=== PATIENT | female | born 1935 | race Caucasian/White ===

== ENCOUNTER → 2019-07-02 | Outpatient (CLI) | payer MEDICARE | END | disposition home or self-care (01) | LOC: LAB SHORT 13:45 → LAB 13:45 | DX: L08.0 Pyoderma (principal) | CPT/HCPCS: 87070; 87205 ==

== ENCOUNTER → 2020-07-19 | Outpatient (CLI) | payer MEDICARE ==
[~2020-07-19] MED LIST: ACET325 PO; CENTRUM SILVER1 EAC2 PO; FOLI400 PO; Flax Oil1000 MG PO; GABA300 PO; HYDR1TAB94 PO; Lovastatin20 MG PO; MIRALAX17 GM PO; MYRBETRIQ50 MG PO; NITR.4SL SL; OMEP20ER PO; TRAZ50 PO; Vitamin B-121000 MCG PO
== END ==
LOC: LAB 11:20 → LAB SHORT 11:20
DX: R10.9 Unspecified abdominal pain (principal)
CPT/HCPCS: 87077; 87086; 87186

== ENCOUNTER 2020-07-20 23:15 | Inpatient (IN) | payer MEDICARE ==
[~2020-07-20] VITALS: Ht 160 cm; Wt 61.2 kg
[2020-07-21 00:10] LABS: BASOPHILS ABSOLUTE AUTO 0.01 K/mm3 (0.00-0.23); BASOPHILS PERCENT AUTO 0 % (0-2); EOSINOPHILS ABSOLUTE AUTO 0.01 K/mm3 (0.00-0.68); EOSINOPHILS PERCENT AUTO 0 % (0-6); Hematocrit 39.2 % (33.0-51.0); Hemoglobin 12.9 g/dL (11.5-16.0); IMMATURE GRAN ABSOLUTE AUTO 0.13 K/mm3 (0.00-0.10); IMMATURE GRAN PERCENT AUTO 1 % (0-1); LYMPHOCYTES ABSOLUTE AUTO 0.58 K/mm3 (0.84-5.20); LYMPHOCYTES PERCENT AUTO 3 % (21-46); MONOCYTES ABSOLUTE AUTO 1.31 K/mm3 (0.16-1.47); MONOCYTES PERCENT AUTO 8 % (4-13); Mean Corpuscular HGB 31.5 pg (26.0-34.0); Mean Corpuscular HGB Conc 32.9 g/dL (31.5-36.5); Mean Corpuscular Volume 96 fL (80-100); Mean Platelet Volume 8.9 fL (9.1-12.4); NEUTROPHILS PERCENT AUTO 88 % (41-73); Platelet Count 425 K/mm3 (150-400); RDW Coefficient Variation 13.1 % (11.7-14.2); RDW Standard Deviation 46.5 fL (35.1-46.3); White Blood Cell Count 17.24 K/mm3 (4.00-11.30)
[2020-07-21 00:12] LABS: Appearance, Urine Hazy (Clear); Bilirubin, Urine 2+ (Neg); Blood, Urine 3+ (Neg); Color, Urine Amber (P-Yellow); Glucose Qualitative, Urine Neg (Neg); Ketones, Urine 1+ (Neg); Leukocyte Esterase, Urine 2+ (Neg); Nitrite, Urine Neg (Neg); Protein, Urine 2+ (Neg); Source, Urine Catheter; Urobilinogen, Urine 2+ (Normal)
[2020-07-21 00:19] LABS: Amorphous Light (0-Heavy); Bacteria Many /hpf; Red Blood Cells, Urine 0-2 /hpf (0-2); Squamous Epithelial Cells Few /hpf (Few); White Blood Cells, Urine 50-100 /hpf (0-5)
[2020-07-21 05:13] LABS: Alanine Aminotransfer (ALT/SGP 1268 U/L (12-78); Albumin, Blood 3.2 g/dL (3.4-5.0); Albumin/Globulin Ratio 0.7 (0.8-1.8); Alk Phos 481 U/L (50-136); Anion Gap 9 mmol/L (6-16); Aspartate Aminotrans (AST/SGOT 1718 U/L (12-37); Bilirubin, Total 5.2 mg/dL (0.1-1.0); Blood Urea Nitrogen 27 mg/dL (8-24); CO2, Blood 25 mmol/L (21-32); Calcium, Blood 9.5 mg/dL (8.5-10.1); Chloride, Blood 99 mmol/L (98-108); Creatinine, Blood 0.97 mg/dL (0.40-1.00); Globulin, Blood 4.5 g/dL (2.2-4.0); Glomerular Filtration Rate 58 (60-); Glucose, Blood 104 mg/dL (70-99); Potassium, Blood 3.5 mmol/L (3.5-5.5); Sodium, Blood 133 mmol/L (136-145); Total Protein, Blood 7.7 g/dL (6.4-8.2)
[2020-07-21 05:29] LABS: Troponin I <0.015 ng/mL (0.000-0.040)
[2020-07-21] MEDS ORDERED: CENTRUM SILVER1 EAC2 PO (05:59)
[2020-07-21] MEDS ORDERED: Flax Oil1000 MG PO (06:00)
[2020-07-21] MEDS ORDERED: FOLI400 PO (06:00)
[2020-07-21] MEDS ORDERED: Lovastatin20 MG PO (06:01)
[2020-07-21] MEDS ORDERED: TRAZ50 PO (06:03)
[2020-07-21] MEDS ORDERED: MYRBETRIQ50 MG PO (06:03)
[2020-07-21] MEDS ORDERED: Vitamin B-121000 MCG PO (06:04)
[2020-07-21] MEDS ORDERED: GABA300 PO (06:05)
[2020-07-21] MEDS ORDERED: NITR.4SL SL (06:06)
[2020-07-21] MEDS ORDERED: ACET325 PO (06:33)
[2020-07-21] MEDS ORDERED: OMEP20ER PO (06:34)
--- NOTE | 2020-07-21 06:40 | NUR ---
SHIFT SUMMARY PT ADMIT TO RM 226 AT 0315. PT A/O X3-4, SPEECH SLIGHTLY SLURRED, PT FORGETFUL AT TIMES. BED ALARM ON. IV FLUIDS STARTED PER ORDERS. DNR BAND PLACED L WRIST. PT DENIES NEED FOR PAIN OR NAUSEA MEDICATION. ORIENTED TO ROOM. SCD'S PLACED. CALL LIGHT IN REACH. O2 NASAL CANULA IN USE TO MAINTAIN O2 SAT WHILE ASLEEP. PT NEEDS 2X ASSIST TO COMMODE; LEGS ARE WEAK - USES WHEELCHAIR AT BASELINE. PT NPO. MOUTH SWABS PROVIDED. ATTENS IN PLACE FOR OCC. INCONTINENCE. PT CURRENTLY RESTING QUIETLY IN BED.
[2020-07-21 11:27] LABS: Albumin, Blood 2.8 g/dL (3.4-5.0); Albumin/Globulin Ratio 0.7 (0.8-1.8); Bilirubin, Total 5.3 mg/dL (0.1-1.0); Bun/Creatinine Ratio 26.9 (12.0-20.0); Calcium, Blood 9.1 mg/dL (8.5-10.1); Creatinine, Blood 1.04 mg/dL (0.40-1.00); Globulin, Blood 3.9 g/dL (2.2-4.0); Potassium, Blood 3.8 mmol/L (3.5-5.5); Total Protein, Blood 6.7 g/dL (6.4-8.2)
--- NOTE | 2020-07-21 15:23 | NUR ---
SHIFT SUMMARY PT A&OX3, VSS, PLAN IS FOR MRCP AT 1730 TODAY. DENIES PAIN AT REST; REPORTS PAIN W/DEEP BREATHS AND MOVEMT. DENIES N&V. NPO T/O SHIFT. IVF @ 100 MLS/HR. UNASYN SCHEDULED. WILL REPORT TO ONCOMING NOC MARIBEL.
[2020-07-22 04:11] LABS: BASOPHILS ABSOLUTE AUTO 0.03 K/mm3 (0.00-0.23); BASOPHILS PERCENT AUTO 0 % (0-2); EOSINOPHILS PERCENT AUTO 2 % (0-6); Hematocrit 29.4 % (33.0-51.0); Hemoglobin 9.4 g/dL (11.5-16.0); IMMATURE GRAN ABSOLUTE AUTO 0.04 K/mm3 (0.00-0.10); IMMATURE GRAN PERCENT AUTO 1 % (0-1); LYMPHOCYTES ABSOLUTE AUTO 0.98 K/mm3 (0.84-5.20); LYMPHOCYTES PERCENT AUTO 12 % (21-46); MONOCYTES ABSOLUTE AUTO 0.88 K/mm3 (0.16-1.47); MONOCYTES PERCENT AUTO 10 % (4-13); Mean Corpuscular HGB 31.4 pg (26.0-34.0); Mean Corpuscular Volume 98 fL (80-100); Mean Platelet Volume 9.3 fL (9.1-12.4); NEUTROPHILS ABSOLUTE AUTO 6.39 K/mm3 (1.96-9.15); NEUTROPHILS PERCENT AUTO 75 % (41-73); Platelet Count 349 K/mm3 (150-400); RDW Coefficient Variation 13.2 % (11.7-14.2); Red Blood Cell Count 2.99 M/mm3 (3.80-5.20); White Blood Cell Count 8.52 K/mm3 (4.00-11.30)
[2020-07-22 04:39] LABS: Alanine Aminotransfer (ALT/SGP 525 U/L (12-78); Albumin, Blood 2.5 g/dL (3.4-5.0); Albumin/Globulin Ratio 0.7 (0.8-1.8); Alk Phos 284 U/L (50-136); Anion Gap 5 mmol/L (6-16); Aspartate Aminotrans (AST/SGOT 323 U/L (12-37); Bilirubin, Total 2.2 mg/dL (0.1-1.0); Blood Urea Nitrogen 24 mg/dL (8-24); Bun/Creatinine Ratio 27.6 (12.0-20.0); CO2, Blood 26 mmol/L (21-32); Calcium, Blood 8.7 mg/dL (8.5-10.1); Chloride, Blood 109 mmol/L (98-108); Creatinine, Blood 0.87 mg/dL (0.40-1.00); Globulin, Blood 3.6 g/dL (2.2-4.0); Glomerular Filtration Rate >60 (60-); Glucose, Blood 82 mg/dL (70-99); Potassium, Blood 3.8 mmol/L (3.5-5.5); Sodium, Blood 140 mmol/L (136-145); Total Protein, Blood 6.1 g/dL (6.4-8.2)
--- NOTE | 2020-07-22 07:18 | NUR ---
SHIFT SUMMARY: PT DENIES ABD PAIN THROUGHOUT SHIFT. NPO FOR POSSIBLE SURGERY TODAY DEPENDING ON MRI. IVF AND IV ABX INFUSING PER EMAR. PT IS A STAND/PIVOT TO BSC. VOIDING WELL. URINE DARK IN COLOR. RECIEVING ABX FOR UTI. PT UNSTEADY ON FEET REQUIRING 2 ASSIST. PT A&O X4 BUT IS FORGETFUL AT TIMES. BED ALARM ON FOR SAFETY.
--- NOTE | 2020-07-22 07:30 | NUR ---
PT DENIES PAIN AT THIS TIME STATED IT IS MIN WITH ACTIVITY 12/23 PT CAN HAVE CL TODAY NPO AFTER MN PER DR MARIEE
--- NOTE | 2020-07-22 09:01 | NUR ---
left message for juan dale at [facility] [phone] to call back for update on pt's plan
--- NOTE | 2020-07-22 10:06 | NUR ---
PT WANTING TO TAKE A NAP MARKO CL THIS AM
--- NOTE | 2020-07-22 12:52 | NUR ---
PT SITTING UP IN CHAIR EATING LUNCH CL DIET WATCHING TV
--- NOTE | 2020-07-22 14:21 | NUR ---
PT'S SON BROUGHT IN HER CYTOMEL MEDICATION SENT TO PHARMACY
--- NOTE | 2020-07-22 15:15 | NUR ---
pt denies dizziness at this time dec b/p sitting up in chair encoraged pt to lay down
--- NOTE | 2020-07-22 16:03 | NUR ---
pt voided assisted back into bed
--- NOTE | 2020-07-22 18:05 | NUR ---
pt stated she was cold additional blanket given pt eating cl diet still no inc pain with diet will be npo after mn
--- NOTE | 2020-07-22 23:45 | NUR ---
SPOKE WITH SASHA REGARDING PT PVR >500 ML. ALSO DISCUSSED PT C/O MILD DIZZYNESS WHEN UP,WITH DAY RN REPORTING NOTED ORTHOSTATIC HYPOTENSION. NO IV FLUIDS ORDERED WHILE PT NPO AFTER MIDNOC FOR POTENTIAL OR. SASHA BUTT PT HAD BEATRICE ON ADMIT WITH RESOLVING UPON RECEIVING IV FLUIDS. IV FLUIDS AND STRAIGHT CATH WITH Q 6 PVR AND STRAIGHT CATH PRN PVR>300 ML.
--- NOTE | 2020-07-23 04:44 | NUR ---
PT SLEEPING SNORING AT THIS TIME. PT HAS C/O INABILITY TO SLEEP PARTIALLY DUE TO SNORING IN NEXT ROOM.I OFFERED EAR PLUGS BUT PT REFUSED.PT WITH NO C/O NAUSEA TONIGHT. REMAINS NPO PENDING POSSIBLE OR TODAY.
--- NOTE | 2020-07-23 06:40 | NUR ---
SUMMARY PT CONTINUES WITH LARGE VOLUME RESIDUAL AND PT REPORTS HX OF RETAINING AND UTI.MA PLACED.PT RESTING .CONT NPO POSSIBLE PREOP FOR TODAY. NO OTHER CHANGES.
[2020-07-23 09:40] LABS: Alanine Aminotransfer (ALT/SGP 358 U/L (12-78); Albumin, Blood 2.5 g/dL (3.4-5.0); Albumin/Globulin Ratio 0.6 (0.8-1.8); Alk Phos 251 U/L (50-136); Anion Gap 5 mmol/L (6-16); Aspartate Aminotrans (AST/SGOT 107 U/L (12-37); Blood Urea Nitrogen 14 mg/dL (8-24); Bun/Creatinine Ratio 16.7 (12.0-20.0); CO2, Blood 26 mmol/L (21-32); Calcium, Blood 9.3 mg/dL (8.5-10.1); Chloride, Blood 112 mmol/L (98-108); Creatinine, Blood 0.84 mg/dL (0.40-1.00); Globulin, Blood 4.3 g/dL (2.2-4.0); Glomerular Filtration Rate >60 (60-); Glucose, Blood 81 mg/dL (70-99); Sodium, Blood 143 mmol/L (136-145); Total Protein, Blood 6.8 g/dL (6.4-8.2)
--- NOTE | 2020-07-23 18:27 | NUR ---
SHIFT SUMMARY NO ACUTE CHANGES THIS SHIFT, NO C/O ANY KIND, UP TO THE CHAIR FOR DINNER @ AT THIS TIME, CALL LIGHT IN REACH, WILL CONT TO MONITOR UNTIL REPORT GIVEN TO MARYANNE LÓPEZ.
[2020-07-24 04:53] LABS: Hematocrit 30.7 % (33.0-51.0); Hemoglobin 9.9 g/dL (11.5-16.0); Mean Corpuscular HGB 31.3 pg (26.0-34.0); Mean Corpuscular HGB Conc 32.2 g/dL (31.5-36.5); Mean Corpuscular Volume 97 fL (80-100); Mean Platelet Volume 8.9 fL (9.1-12.4); Platelet Count 408 K/mm3 (150-400); RDW Coefficient Variation 12.5 % (11.7-14.2); Red Blood Cell Count 3.16 M/mm3 (3.80-5.20); White Blood Cell Count 4.81 K/mm3 (4.00-11.30)
[2020-07-24 05:13] LABS: Anion Gap 5 mmol/L (6-16); Blood Urea Nitrogen 7 mg/dL (8-24); Bun/Creatinine Ratio 9.5 (12.0-20.0); CO2, Blood 27 mmol/L (21-32); Calcium, Blood 8.6 mg/dL (8.5-10.1); Chloride, Blood 109 mmol/L (98-108); Creatinine, Blood 0.74 mg/dL (0.40-1.00); Glomerular Filtration Rate >60 (60-); Glucose, Blood 92 mg/dL (70-99); Potassium, Blood 3.9 mmol/L (3.5-5.5); Sodium, Blood 141 mmol/L (136-145)
--- NOTE | 2020-07-24 07:10 | NUR ---
SUMMARY RYELER TO SEE PT. PLANS FOR SURGERY THIS PM.
--- NOTE | 2020-07-24 11:55 | NUR ---
pt transferred to daysurgery via stretcher
--- NOTE | 2020-07-24 12:13 | NUR ---
IV DIFFICULT TO FLUSH, LEAKING INTO DRESSING, PT DENIES PAIN. RESTART OF IV
--- NOTE | 2020-07-24 13:05 | NUR ---
07/24/20 1305 Mikhail Kelly PATIENT ARRIVED TO OR W/MA CATH DRAINING YELLOW URINE
--- NOTE | 2020-07-24 16:20 | NUR ---
SHIFT SUMMARY: PT RETURNED TO ROOM VIA STRETCHER 1600 FROM SURGICAL PROCEDURE LAPARASCOPIC CHOLECYSTECTOMY. UPON RETURNING TO ROOM PT DROWSY BUT IS RESPONSIVE, ALERT, ANSWERS APPROPRIATELY. 2L NC WITH SPO2 >92%. PT DENIES PAIN, STATES TO MILD NAUSEA, NO VOMITING. POST OP VS COMMENCED AND STABLE THUS FAR. MA CATHETER PATENT AND DRAINING CLEAR YELLOW URINE. LAP SITES ABDOMEN X 2 C/D/I WITH 2X2 GAUZE UNDERNEATH TEGADERM DRESSING
--- NOTE | 2020-07-24 16:53 | NUR ---
family member visiting pt
--- NOTE | 2020-07-25 05:14 | NUR ---
SHIFT SUMMARY POD#1 LAP ANU. CONFUSED INTERMITTENTLY T/O NIGHT/COOPERATIVE. ABD INCISIONS WITH GAUZE X4 C/D/I. PT REPORTING MILD DISCOMFORT WITH REPOSITIONING, DENIES PAIN MEDICATIONS. NO NAUSEA/EMESIS. IVF PER ORDERS. STRICT I+Os. PT TAKING SIPS WATER T/O NIGHT WITH MA SECURE/PATENT DRAINING CLEAR YELLOW URINE. MEPILEX TO COCCYX APPLIED YESTARDAY PER DAY SHIFT RN, TURN Q2H T/O NIGHT + HEELS FLOATED. PT RESTED WELL T/O NIGHT. ENCOURAGE MOVEMENT + OOB TODAY TOLERATED. NO ACUTE CHANGES THIS NOC SHIFT. PT CURRENTLY RESTING WITH CALL LIGHT IN REACH + PT USES CALL LIGHT FOR ASSISTANCE.
--- NOTE | 2020-07-25 09:30 | NUR ---
DR VELÁZQUEZ HERE RECENTLY TO SEE PT.
--- NOTE | 2020-07-25 10:59 | NUR ---
PT RECENTLY UP TO CHAIR WITH ASSIST, GB, WALKER. FAMILY PRESENT.
--- NOTE | 2020-07-25 11:00 | NUR ---
PT USING I/S AFTER ENCOURAGEMENT.
--- NOTE | 2020-07-25 15:14 | NUR ---
DR DIAZ HERE RECENTLY TO SEE PT. REPORTS PT MAY BE S.L. WHICH WAS COMPLETED. ALSO REPORTS TO D/C CATHETER. FEMALE SAILOR NOTIFIED. DISCUSSED WITH EMBROIDERY DESIGNER.
--- NOTE | 2020-07-25 15:58 | NUR ---
SHIFT SUMMARY PT TOLERATING C.L. DIET, ADVANCING TO F.L. DIET THIS EVENING. PT REPORTS PAIN DOING MUCH BETTER THIS AFTERNOON. PT BEEN UP TO CHAIR TODAY. PT S.L. SHE IS DRINKING WELL. PT TO HAVE MA OUT TODAY PER DR DIAZ, FEMALE CASTING MACHINE SET UP OPERATOR TO ASSIST WITH THIS. PT USING [employer] LIGHT APPR. PT BEEN ASSISTED WITH ADL'S PRN.
--- NOTE | 2020-07-25 16:34 | NUR ---
FEMALE CONVEYOR LOADER REPORTS RECENTLY D/C'D FRANCESCA.
--- NOTE | 2020-07-25 18:40 | NUR ---
PT COUGHING WHILE EATING DINNER, FAMILY REPORTED THAT PT "IRINA CHOKED AND COUGHED AFTER HAVING HIS CHICKEN. FAMILY REPORTS THAT HE DID FINE WITH THE NOODLES THEN DIDN'T DO TO WELL WITH HIS CHICKEN. PT ASSISTED WITH DOING COUGHING AND CLEARING THROAT, SPITTING UP SMALL AMT OF CLEAR FLUID AND WHAT LOOKS LIKE HIS VEGETABLE ON HIS PLATE. SUCTION WAS SET UP AND PT WAS ASSISTED WITH THAT WELL. PT BIOX 94% ON RA. HR 91. DR HALE NOTIFIED, REPORTS WILL PLACE ORDER FOR SPEECH THERAPY. PT TOOK COUMADIN WITH APPLESAUCE WITHOUT DIFFICULTY. BED ALARM ON FOR SAFETY.
--- NOTE | 2020-07-26 04:52 | NUR ---
SHIFT SUMMARY POD#2. AAOX4. PT RESTED WELL T/O NIGHT. AAOX4. ABD INCISIONS X4 WITH GAUZE C/D/I. PT REPORTS DISCOMFORT WITH MOVEMENT, DENIES PAIN MEDICATION NEEDS. NO NAUSEA/EMESIS. PT UP TO BSC FREQUENTLY T/O NIGHT, 1 PERSON MINIMAL ASSISTED WITH FWW. LARGE AMOUNTS OF CLEAR YELLOW URINE. IV ABX PER ORDERS. PT REPORTING FLATUS, NO BM POST OP. CURRENTLY PT RESTING IN BED WITH CALL LIGHT IN REACH.
[2020-07-26 05:48] LABS: Percent Saturation 13.3 % (15.0-50.0)
[2020-07-26 06:44] LABS: Alanine Aminotransfer (ALT/SGP 145 U/L (12-78); Albumin, Blood 2.4 g/dL (3.4-5.0); Albumin/Globulin Ratio 0.6 (0.8-1.8); Alk Phos 172 U/L (50-136); Anion Gap 5 mmol/L (6-16); Aspartate Aminotrans (AST/SGOT 23 U/L (12-37); Bilirubin, Total 0.5 mg/dL (0.1-1.0); Blood Urea Nitrogen 9 mg/dL (8-24); Bun/Creatinine Ratio 10.5 (12.0-20.0); CO2, Blood 29 mmol/L (21-32); Calcium, Blood 8.5 mg/dL (8.5-10.1); Chloride, Blood 107 mmol/L (98-108); Creatinine, Blood 0.86 mg/dL (0.40-1.00); Globulin, Blood 3.8 g/dL (2.2-4.0); Glomerular Filtration Rate >60 (60-); Glucose, Blood 88 mg/dL (70-99); Potassium, Blood 3.7 mmol/L (3.5-5.5); Sodium, Blood 141 mmol/L (136-145); Total Protein, Blood 6.2 g/dL (6.4-8.2)
--- NOTE | 2020-07-26 09:48 | NUR ---
DR VELÁZQUEZ REPORTED TO COME SEE PT AND IS CLEARED FROM HER STAND-POINT TO GO HOME PER OTHER MARIBEL HBasia.
--- NOTE | 2020-07-26 10:04 | NUR ---
THERAPY REPORTED PT CLEARED TO GO HOME, REPORTS PT REPORTING HAVING ASSISTANCE AT HOME.
[2020-07-26] MEDS ORDERED: HYDR1TAB94 PO (11:12)
[2020-07-26] MEDS ORDERED: MIRALAX17 GM PO (11:13)
--- NOTE | 2020-07-26 11:25 | NUR ---
DISCHARGE: PT/FAMILY REPORTS UNDERSTANDING OF DISCHARGE INSTRUCTIONS INCLUDING MEDICATIONS. PT SENT WITH HOME MEDICATIONS FROM PT'S DRAWER. PT BEEN EATING AND DRINKING, VOIDING, PASSING GAS. PT BEEN CLEARED BY DR VELÁZQUEZ AND THERAPY TO GO HOME. PT/FAMILY REPORTS HAVING EQUIP AND ASSIST AT HOME. IV OUT WNL, NO OTHER IV'S IN PLACE. PT SENT WITH BELONGINGS, PAPERWORK INCLUDING SCRIPT. REPORTS ABLE TO GET MIRALAX IF DOES NOT ALREADY HAVE AT HOME.
== END 2020-07-26 11:30 | disposition home or self-care (01) | DRG 853 ==
LOC: ER 23:15 → SURS 07-21 02:30 → EDBEDREQ 07-21 05:30 → SURS 07-21 05:47
PROVIDERS: Emergency Medicine; Internal Medicine; Surgery; ADMIT Internal Medicine
PROC: 0WQF4ZZ Repair Abdominal Wall, Percutaneous Endoscopic Approach (ICD-10-PCS; 2020-07-24)
PROC: 0FT44ZZ Resection of Gallbladder, Percutaneous Endoscopic Approach (ICD-10-PCS; principal; 2020-07-24 12:30)
PROC: BF03YZZ Plain Radiography of Gallbladder and Bile Ducts using Other Contrast (ICD-10-PCS; 2020-07-24 12:30)
DX: A41.9 Sepsis, unspecified organism (principal); K85.10 Biliary acute pancreatitis without necrosis or infection; K80.01 Calculus of gallbladder with acute cholecystitis with obstruction; K42.0 Umbilical hernia with obstruction, without gangrene; N39.0 Urinary tract infection, site not specified; Z20.828 Contact with and (suspected) exposure to other viral communicable diseases; D64.9 Anemia, unspecified; N32.81 Overactive bladder; K21.9 Gastro-esophageal reflux disease without esophagitis; E78.5 Hyperlipidemia, unspecified; G62.9 Polyneuropathy, unspecified; F03.90 Unspecified dementia, unspecified severity, without behavioral disturbance, psychotic disturbance, mood disturbance, and anxiety; Z88.2 Allergy status to sulfonamides
CPT/HCPCS: 36415; 51701; 71045; 74177; 74181; 74300; 76705; 80048; 80053; 81001; 82607; 82728; 82746; 83540; 83550; 83605; 83690; 84484; 85025; 85027; 87040; 87086; 88304; 93005; 93010; 96374; 97162; 97530; A9270-GY; C1729; J0295; J0696; J1100; J1885; J2250; J2405; J2704; J2765; J3010; J3480; J7030; J7040; J7120; Q9967; U0003

== ENCOUNTER 2020-08-24 19:09 | Emergency (ER) | payer MEDICARE ==
[~2020-08-24] VITALS: Ht 162.6 cm; Wt 61.2 kg
== END 2020-08-24 23:55 | disposition home or self-care (01) ==
LOC: ER 19:09
DX: K85.90 Acute pancreatitis without necrosis or infection, unspecified (principal); Z88.2 Allergy status to sulfonamides; Z79.899 Other long term (current) drug therapy; W18.30XA Fall on same level, unspecified, initial encounter
CPT/HCPCS: 71046; 96372; 99283-25; J1885

== ENCOUNTER 2020-08-27 09:48 | Emergency (ER) | payer MEDICARE ==
[~2020-08-27] VITALS: Ht 157.5 cm; Wt 61.2 kg
[2020-08-27] MEDS ORDERED: Norco 5-325 Ta1 EACH PO (12:08)
== END 2020-08-27 12:42 | disposition home or self-care (01) ==
LOC: ER 09:48
DX: R07.89 Other chest pain (principal); R07.81 Pleurodynia; Z88.2 Allergy status to sulfonamides; Z79.899 Other long term (current) drug therapy; W19.XXXA Unspecified fall, initial encounter
CPT/HCPCS: 71101; 99283-25; A9270-GY

== ENCOUNTER 2021-02-13 14:06 | Inpatient (IN) | payer MEDICARE ==
[~2021-02-13] VITALS: Ht 160 cm; Wt 71.5 kg
[~2021-02-13 14:06] MED LIST changes: +Norco 5-325 Ta1 EACH PO; -OMEP20ER PO; +OMEPRAZOLE PT
[2021-02-13 14:42] LABS: BASOPHILS ABSOLUTE AUTO 0.03 K/mm3 (0.00-0.23); BASOPHILS PERCENT AUTO 0 % (0-2); EOSINOPHILS ABSOLUTE AUTO 0.21 K/mm3 (0.00-0.68); EOSINOPHILS PERCENT AUTO 2 % (0-6); Hematocrit 21.6 % (33.0-51.0); Hemoglobin 6.1 g/dL (11.5-16.0); IMMATURE GRAN ABSOLUTE AUTO 0.05 K/mm3 (0.00-0.10); IMMATURE GRAN PERCENT AUTO 1 % (0-1); LYMPHOCYTES ABSOLUTE AUTO 2.03 K/mm3 (0.84-5.20); LYMPHOCYTES PERCENT AUTO 19 % (21-46); MONOCYTES ABSOLUTE AUTO 0.79 K/mm3 (0.16-1.47); MONOCYTES PERCENT AUTO 7 % (4-13); Mean Corpuscular HGB 21.6 pg (26.0-34.0); Mean Corpuscular HGB Conc 28.2 g/dL (31.5-36.5); Mean Corpuscular Volume 76 fL (80-100); Mean Platelet Volume 9.3 fL (9.1-12.4); NEUTROPHILS ABSOLUTE AUTO 7.66 K/mm3 (1.96-9.15); NEUTROPHILS PERCENT AUTO 71 % (41-73); Platelet Count 743 K/mm3 (150-400); RDW Standard Deviation 44.2 fL (35.1-46.3); Red Blood Cell Count 2.83 M/mm3 (3.80-5.20); White Blood Cell Count 10.77 K/mm3 (4.00-11.30)
[2021-02-13 15:07] LABS: Alanine Aminotransfer (ALT/SGP 17 U/L (12-78); Albumin, Blood 3.5 g/dL (3.4-5.0); Alk Phos 88 U/L (50-136); Anion Gap 7 mmol/L (6-16); Aspartate Aminotrans (AST/SGOT 39 U/L (12-37); Bilirubin, Total 0.4 mg/dL (0.1-1.0); Blood Urea Nitrogen 23 mg/dL (8-24); Bun/Creatinine Ratio 19.8 (12.0-20.0); CO2, Blood 23 mmol/L (21-32); Calcium, Blood 8.5 mg/dL (8.5-10.1); Chloride, Blood 105 mmol/L (98-108); Creatinine, Blood 1.16 mg/dL (0.40-1.00); Globulin, Blood 3.5 g/dL (2.2-4.0); Glomerular Filtration Rate 47 (60-); Glucose, Blood 144 mg/dL (70-99); Potassium, Blood 4.4 mmol/L (3.5-5.5); Sodium, Blood 135 mmol/L (136-145); Troponin I <0.015 ng/mL (0.000-0.040)
[2021-02-13 17:10] LABS: International Normalized Ratio 0.95; Prothrombin Time Results 10.3 Sec (9.7-11.5)
[2021-02-13 23:02] LABS: Hematocrit 25.2 % (33.0-51.0); Hemoglobin 7.5 g/dL (11.5-16.0)
--- NOTE | 2021-02-14 04:40 | NUR ---
SHIFT SUMMARY PATIENT ARRIVED TO [facility] @1922 FROM ED, SLID FROM STRETCHER TO THE BED. BLOOD TRANSFUSION GOING WHEN PATIENT ARRIVED. PATIENT IS ALERT AND ORIENTED X4. Hgb IMPROVED TO 7.5 AFTER TRANSFUSION. PATIENT BECAME TACHYCARDIC IN THE 110s-120s, TEMP OF 99.7 AND BLOOD PRESSURE DECLINED. CALLED HOSPITALIST FOR A BP OF 95/53, 500 ML BOLUS OF NS GIVEN, BP NOW 125/60. PATIENT HAVING SMALL AMOUNT OF DIARRHEA AND SOME ABDOMINAL TENDERNESS. 02 SATS >90% ON RA. Q2 HOUR TURNING AND ATTENDS CHANGES NEEDED. CALL LIGHT IN REACH.
[2021-02-14 05:26] LABS: Hematocrit 22.3 % (33.0-51.0); Hemoglobin 6.7 g/dL (11.5-16.0)
[2021-02-14 05:58] LABS: Calcium, Blood 8.1 mg/dL (8.5-10.1); Creatinine, Blood 1.43 mg/dL (0.40-1.00); Potassium, Blood 4.5 mmol/L (3.5-5.5)
[2021-02-14 15:44] LABS: Hematocrit 28.3 % (33.0-51.0); Hemoglobin 8.7 g/dL (11.5-16.0)
[2021-02-14 16:31] LABS: Percent Saturation 7.7 % (15.0-50.0)
--- NOTE | 2021-02-14 18:47 | NUR ---
SHIFT SUMMARY PT IS A&O X3-4. SHE RECIEVED 1 UNIT PRBC'S TODAY WITH NO PROBLEMS. NS CURRENTLY INFUSING @ 75 ML/HR PER EMAR. NAUSEA NOTED THIS AFTERNOON. PT ENC TO DECREASE PO INTAKE. MULTIPLE BROWN LIQUID STOOLS NOTED THROUGH THE DAY. PT ASSISTED TO BSC PRN/ TOLERATED. CONSULTED TODAY, PT WILL BE GOING FOR AN EGD TOMORROW AFTERNOON. SHE IS TO HAVE CLEAR LIQUIDS FOR BREAKFAST AND THEN BE NPO UNTIL AFTER PROCEDURE. [facility] DIRECTOR UPDATED ON PT'S STATUS TODAY, PT GAVE VERBAL CONSENT. WCTM & REPORT TO NOC RN. CALL LIGHT IN REACH.
[2021-02-14 19:12] LABS: Hematocrit 27.9 % (33.0-51.0); Hemoglobin 8.7 g/dL (11.5-16.0)
[2021-02-15 01:25] LABS: Influenza A, PCR NEGATIVE (NEGATIVE); Influenza B, PCR NEGATIVE (NEGATIVE); Resp Syncytial Virus, PCR NEGATIVE (NEGATIVE); SARS-Cov-2 (COVID-19) PCR, MMC NEGATIVE (NEGATIVE)
--- NOTE | 2021-02-15 01:30 | NUR ---
CALL TO PT'S FAMILY ATTEMPTED TO REACH PT'S SON "KEE" TO PROVIDE AN UPDATE ON PT STATUS AND DECLINING CONDITION. LEFT VOICEMAIL WITH REQUEST TO RETURN CALL AND ADVISED PT THAT ATTEMPT WAS MADE.
--- NOTE | 2021-02-15 02:38 | NUR ---
EVENT NOTE CALLED TO ROOM BY PRIMARY RN KENIA FOR CONCERN OF PT DESATURATING, WORSENING LUNG SOUNDS, AND PT C/O "REGURGITATING". PT APPEARS UNCOMFORTABLE, SHORT OF BREATH, ANSWERING QUESTIONS APPROPRIATELY. AUDIBLE GURGLING NOISES NOTED AND PT HAS BROWN TINGED FLUID AROUND LIPS. ORAL SUCTION PROVIDED AND PT ENCOURAGED TO COUGH. SATS ARE 85% ON 2L, NON-REBREATHER PLACED TO FLUSH WITH SATS IMPROVING TO THE LOW 90'S. CALL PLACED TO DR. SWANSON AND CONCERNS DISCUSSED ABOUT PRESENTATION AND VITAL SIGNS. ORDERS RECEIVED AND ATTEMPT TO PLACE NG TUBE WITH SOME DIFFICULTY. PT IS COOPERATIVE AND STOIC THROUGHOUT BUT SOME RESISTANCE IS FELT AND LESS THAN EXPECTED OUTPUT ACHIEVED WITH APPROX 200 ML TO CANISTER OF DARK BROWN LIQUID. X-RAY TAKEN AND MD CALLED FOR REVIEW. POSSIBLE COILING OF THE NG TUBE R/T HIATAL HERNIA. REQUESTED ASSISTANCE FROM ICU DRIVER LIFTER OF SANITATION TRUCKMARIBEL GAITAN FOR SECOND ATTEMPT AT PLACEMENT WITH REDUCTION OF HERNIA. SUBSEQUENT X-RAYS APPEARED TO SHOW COILING INTO THE LEFT HERNIA AND NG TUBE WAS REMOVED WITH APPROX 500 ML OUTPUT. REGLAN IV GIVEN PER ORDER. SALVADOR HEBERT PRESENT AND ASSISTING TO MAINTAIN SATS WITH NON-REBREATHER AND 15 L FLOW IN ADDITION TO MASK. PLACED ON AN AIRVO AT 45 L AND 91% TO KEEP SATS ABOVE 90%. CLOSE MONITORING AND ADDITIONAL CALLS PLACED TO DR. SWANSON FOR UPDATES.
[2021-02-15 04:17] LABS: BASOPHILS ABSOLUTE AUTO 0.01 K/mm3 (0.00-0.23); BASOPHILS PERCENT AUTO 0 % (0-2); Hematocrit 30.7 % (33.0-51.0); Hemoglobin 9.5 g/dL (11.5-16.0); LYMPHOCYTES ABSOLUTE AUTO 0.25 K/mm3 (0.84-5.20); LYMPHOCYTES PERCENT AUTO 11 % (21-46); MONOCYTES ABSOLUTE AUTO 0.23 K/mm3 (0.16-1.47); MONOCYTES PERCENT AUTO 10 % (4-13); Mean Corpuscular HGB 23.3 pg (26.0-34.0); Mean Corpuscular HGB Conc 30.9 g/dL (31.5-36.5); Mean Corpuscular Volume 75 fL (80-100); Mean Platelet Volume 9.2 fL (9.1-12.4); NRBC ABSOLUTE 0.02 K/mm3 (0.00-0.02); NRBC Auto 0.8 /100 WBC (0.0-0.2); Platelet Count 667 K/mm3 (150-400); RDW Coefficient Variation 17.1 % (11.7-14.2); RDW Standard Deviation 46.1 fL (35.1-46.3); Red Blood Cell Count 4.08 M/mm3 (3.80-5.20); White Blood Cell Count 2.39 K/mm3 (4.00-11.30)
[2021-02-15 04:20] LABS: EOSINOPHILS PERCENT AUTO 0 % (0-6); IMMATURE GRAN PERCENT AUTO 0 % (0-1); NEUTROPHILS PERCENT AUTO 80 % (41-73)
[2021-02-15 04:35] LABS: Bun/Creatinine Ratio 30.8 (12.0-20.0); Calcium, Blood 8.7 mg/dL (8.5-10.1); Creatinine, Blood 1.17 mg/dL (0.40-1.00); Potassium, Blood 4.3 mmol/L (3.5-5.5)
[2021-02-15 04:40] LABS: BAND PERCENT MAN 15 % (0-8); BASOPHILS PERCENT MAN 0 % (0-2); EOSINOPHILS PERCENT MAN 0 % (0-6); LYMPHOCYTES ABSOLUTE MAN 0.35 K/mm3 (0.84-5.20); LYMPHOCYTES PERCENT MAN 15 % (21-46); MONOCYTES ABSOLUTE MAN 0.11 K/mm3 (0.16-1.47); MONOCYTES PERCENT MAN 5 % (4-13); NEUTROPHILS ABSOLUTE MAN 1.91 K/mm3 (1.96-9.15); SEG NEUTROPHILS PERCENT MAN 65 % (41-73); TOTAL CELLS COUNTED 100
--- NOTE | 2021-02-15 08:00 | NUR ---
SHIFT SUMMARY PATIENT IS ALERT AND ORIENTED X4. Q2 HOURS WITH REPOSITIONING. PATIENT COMPLAINED OF NAUSEA AT THE BEGINNING OF THE SHIFT, MEDICATED PER EMAR AND PATIENT STATED SHE WAS NO LONGER NAUSEOUS. 02 SATS AT BEGINNING OF SHIFT WERE >90% ON 2L VIA NC. NO STOOLS NOTED. PATIENT WENT TO SLEEP, WHEN REASSESSING PATIENT AFTER MIDNIGHT I NOTICED THE PATIENT APPEARED TO BE REGURGITATING SMALL AMOUNT OF BROWN FLUID. PATIENT TOLD ME SHE WAS SWALLOWING IT. IMMEDIATLEY SAT PATIENT UP AND SUCTIONED. LUNG SOUNDS CRACKLES THORUGHOUT. PATIENT VOMITTED A DARK BOWN LIQUID. KETTLEMANMARIBEL AGARWAL IN ROOM AND PLACED CALLS TO HOSPITALIST. NG TUBE ATTEMPTED, PLACEMENT IN HERNIA, APPROX 450 ML OUT. ULTIMATELY REMOVED NG TUBE D/T POOR PLACEMENT. REGLAN STARTED PER HOSPITALIST. PATIENT HAS BEEN NPO. RT IN ROOM TO MAINTAIN 02 SATS PATIENT 02 SATS IN THE 80s, NON-REBREATHER USED DURING NG TUBE ATTEMPTS.PATIENT NOW ON AIRVO. KETTLEMAN NOTIFIED FAMILY. VITAL SIGNS NOW STABLE, PATIENT STILL NEEDING LARGE AMOUNT OF 02. SELF-SUCTION SET UP AND ORAL CARE PROVIDED. CALL LIGHT IN REACH.
--- NOTE | 2021-02-15 12:21 | NUR ---
Echocardiogram completed.
--- NOTE | 2021-02-15 13:24 | NUR ---
PT BACK FROM CT SCAN. AWAKE, ALERT & ORIENTED AT THIS TIME. RT AND MYSELF WERE PRESENT DURING CT. HOB ELEVATED, AIRVO @ 45 L, 91 FIO2, SPO2 98%, RESP 26. LAB IN TO DRAW SPECIMEN. POWERGLIDE PLACED THIS AM BY NEW CAR GET READY MECHANIC WILL NOT DRAW. BED IN LOW POSITION, CALL LIGHT IN REACH.
[2021-02-15 14:39] LABS: Source, Urine Clean Catch
[2021-02-15 14:46] LABS: Appearance, Urine Cloudy (Clear); Bilirubin, Urine Neg (Neg); Blood, Urine 1+ (Neg); Color, Urine Amber (P-Yellow); Glucose Qualitative, Urine Neg (Neg); Ketones, Urine Neg (Neg); Leukocyte Esterase, Urine 3+ (Neg); Nitrite, Urine Neg (Neg); Protein, Urine 2+ (Neg); Specific Gravity, Urine 1.025 (1.003-1.022); Urobilinogen, Urine NORM (Normal)
[2021-02-15 15:03] LABS: Bacteria Many /hpf; Granular Casts 0-2 /lpf (0); Squamous Epithelial Cells Mod /hpf (Few); White Blood Cells, Urine TNTC /hpf (0-5)
--- NOTE | 2021-02-15 15:20 | NUR ---
IN TO ASSESS PATIENT AT THIS TIME. PT'S SON IS AT THE BEDSIDE. DISCUSSED CANCELLING THE EGD UNTIL FURTHER NOTICE & POSSIBLY OUT PT DUE DUE TO CURRENT RESP STATUS. HE EXPLAINED THAT PT PT WOULD NEED TO BE INTUBATED & THAT HE WAS NOT COMFORTABLE WITH THAT, BOTH PT AND SON AGREED THAT THEY WERE NOT EITHER. PT'S H&H IS STABLE AT THIS TIME. STATED HE WILL CONTINUE TO WATCH HER AND SEE HOW SHE DOES AT THIS TIME. PT IS CURRENTLY A DNR. IV PROTONIX 40 MG BID VERBAL ORDER GIVEN.
--- NOTE | 2021-02-15 17:26 | NUR ---
RT IN ROOM TO COLLOCET BLOOD GAS AT THIS TIME. PT IS AWAKE, ALERT & ORIENTED. AIRVO REMAINS @ 45 L, 91% FIO2, SPO2 97%.
[2021-02-15 17:35] LABS: PCO2 Arterial 35.4 mmHg (35-45); PO2 Arterial 91.3 mmHg (80-100); pH Blood Arterial 7.35 (7.35-7.45)
--- NOTE | 2021-02-15 17:45 | NUR ---
TRANSFER PT IS BEING TRANSFERED TO ICU PER /MARIANNA REQUEST. CALLED THE DRY FOLDER CLOTH & NOTIFIED HER OF CODE STATUS CHANGE FROM DNR TO FULL CODE. PT HAD VOICED THIS AFTERNOON THAT SHE WISHED TO REMAIN A DNR. PT WAS ASKED AGIN WHILE GIVING REPORT TO CAGE SUPERVISOR AND SHE STATED THAT SHE WAS OKAY WITH "A LITTLE BIT OF COMPRESSIONS", AND INTUBATION IF NEEDED. PT REQUESTED THAT HER SON BE NOTIFIED. I AM UNAWARE IF SON HAS BEEN CONTACTED BY THE PHYSICIANS PRIOR TO THIS OR NOT. PT HAS DENIED NAUSEA/PAIN THROUGH THE DAY. AIRVO SETTINGS PRIOR TO TRANSFER REMAINED @ 45L, 91%.
[2021-02-15 18:49] LABS: Source, Urine Catheter
--- NOTE | 2021-02-15 18:53 | NUR ---
ICU TRANSFER / ASSUMPTION OF CARE: REPORT RECEIVED FROM DR GONZALEZ, WHO HAS CALLED THE UNIT TO NOTIFY OF PT TRANSFER FROM PCU, & ALEXYS Montanez RN. THE PT HAS ARRIVED VIA BED AT 1744 & IS ON 15L NRB AT THAT TIME. PT TX TO ICU BED W/ 5 STAFF ASSIST & SLIDER SHEET. MICKY Ferrer & LAUREN Pitts, RTs, AT BEDSIDE DURING THIS TIME & THE PT HAS BEEN IMMEDIATELY PLACED ON BIPAP W/ SETTINGS: 14/7 W/ BACKUP RATE 16 & 70% FIO2. THE PT IS TOLERATING THIS WELL W/ O2 SATS > 89% ON AVG. BIPAP SETTINGS ADJUSTED TO 12/6 & 70% FIO2 AT 1815. SINCE ARRIVAL TO ICU, THE PT HAS CLARIFIED THAT SHE DOES WISH TO BE A FULL CODE. LS ARE COARSE T/O, SPUTUM SAMPLE TO BE COLLECTED IF PT ABLE TO EXPECTORATE. MONITOR SHOWS ST W/ HR 100s, BP STABLE. THE PT HAS NO CURRENT GI COMPLAINTS & DENIES PAIN TO ABD PALPATION. ATTENDS IN PLACE FOR REPORTED INCONTINENCE. MA PLACED BY MICHELLE WINCHESTER RN, & UA SENT AT THAT TIME. SKIN CONDITION IS OVERALL CDI, SMALL AMNT OF REDNESS NOTED TO COCCYX IS BLANCHABLE. WILL CONTINUE TO MONITOR & REPORT OFF TO ONCOMING RN.
[2021-02-15 18:59] LABS: Appearance, Urine Clear (Clear); Bilirubin, Urine Neg (Neg); Blood, Urine Neg (Neg); Color, Urine Amber (P-Yellow); Glucose Qualitative, Urine Neg (Neg); Ketones, Urine Neg (Neg); Leukocyte Esterase, Urine 1+ (Neg); Nitrite, Urine Neg (Neg); Protein, Urine 1+ (Neg); Urobilinogen, Urine NORM (Normal)
--- NOTE | 2021-02-15 19:00 | NUR ---
ASSUMED CARE ASSUMED CARE OF PATIENT. AWAKE AND ALERT. ORIENTED TO SELF, PLACE, AND TO EVENTS. UNSURE OF DATE/TIME. MOVES ALL EXTREMITIES WEAKLY. LEFT SIDE SLIGHTLY WEAKER THAN RIGHT. FOLLOWS SIMPLE COMMANDS/DIRECTIONS. SLOW VERBAL RESPONSE AND SPEECH IS SLIGHTLY SLURRED. MOIST COUGH, BUT NON-PRODUCTIVE AT THIS TIME. REMAINS ON BIPAP 12/6, BUR 16, FIO2 70%. RR MID-20s. MONITOR SHOWS ST, RATE 110-120. BP STABLE. MA PATENT WITH SLIGHTLY CLOUDY CASSI URINE. SEE SHIFT ASSESSMENT FOR FULL ASSESSMENT.
[2021-02-15 19:06] LABS: Bacteria Many /hpf; Red Blood Cells, Urine 0-2 /hpf (0-2); Squamous Epithelial Cells Not Seen /hpf (Few); White Blood Cells, Urine 0-2 /hpf (0-5)
--- NOTE | 2021-02-15 22:48 | NUR ---
AIRVO CHANGED TO HIGH FLOW OXYGEN THERAPY 40L/60% FIO2 AT THIS TIME. RESPIRATIONS EVEN AND UNLABORED. PT DENIES DYSPNEA/SOB.
--- NOTE | 2021-02-15 23:59 | NUR ---
BIPAP PT REQUESTING TO HAVE BIPAP BACK ON. C/O MILD DYSPNEA AND INCREASED COUGHING. BIPAP BACK ON AT THIS TIME.
[2021-02-16 03:23] LABS: BASOPHILS ABSOLUTE AUTO 0.06 K/mm3 (0.00-0.23); BASOPHILS PERCENT AUTO 0 % (0-2); Hematocrit 23.9 % (33.0-51.0); Hemoglobin 7.4 g/dL (11.5-16.0); LYMPHOCYTES ABSOLUTE AUTO 0.43 K/mm3 (0.84-5.20); LYMPHOCYTES PERCENT AUTO 3 % (21-46); MONOCYTES ABSOLUTE AUTO 0.77 K/mm3 (0.16-1.47); MONOCYTES PERCENT AUTO 6 % (4-13); Mean Corpuscular HGB 23.8 pg (26.0-34.0); Mean Corpuscular Volume 77 fL (80-100); Mean Platelet Volume 9.2 fL (9.1-12.4); Platelet Count 436 K/mm3 (150-400); RDW Coefficient Variation 17.9 % (11.7-14.2); RDW Standard Deviation 49.3 fL (35.1-46.3); Red Blood Cell Count 3.11 M/mm3 (3.80-5.20); White Blood Cell Count 13.51 K/mm3 (4.00-11.30)
[2021-02-16 03:24] LABS: EOSINOPHILS PERCENT AUTO 0 % (0-6); IMMATURE GRAN ABSOLUTE AUTO 0.14 K/mm3 (0.00-0.10); IMMATURE GRAN PERCENT AUTO 1 % (0-1); NEUTROPHILS ABSOLUTE AUTO 12.11 K/mm3 (1.96-9.15); NEUTROPHILS PERCENT AUTO 90 % (41-73)
[2021-02-16 03:39] LABS: Bun/Creatinine Ratio 31.6 (12.0-20.0); Calcium, Blood 8.5 mg/dL (8.5-10.1); Creatinine, Blood 1.58 mg/dL (0.40-1.00); Potassium, Blood 4.3 mmol/L (3.5-5.5)
[2021-02-16 03:44] LABS: BAND PERCENT MAN 34 % (0-8); BASOPHILS PERCENT MAN 0 % (0-2); EOSINOPHILS PERCENT MAN 0 % (0-6); LYMPHOCYTES ABSOLUTE MAN 0.67 K/mm3 (0.84-5.20); LYMPHOCYTES PERCENT MAN 5 % (21-46); METAMYELOCYTE PERCENT MAN 3 % (0-0); MONOCYTES PERCENT MAN 3 % (4-13); NEUTROPHILS ABSOLUTE MAN 12.02 K/mm3 (1.96-9.15); SEG NEUTROPHILS PERCENT MAN 55 % (41-73); TOTAL CELLS COUNTED 100
--- NOTE | 2021-02-16 06:10 | NUR ---
SHIFT SUMMARY NO ACUTE CHANGES. REMAINED ON BIPAP 09/20, BUR 16, FIO2 NOW 50% FOR MOST OF NOC. OCCASIONAL BREAKS FROM BIPAP ON AIRVO TOLERATED. CONTINUES WITH MOIST NON-PRODUCTIVE COUGH. BP STABLE. HR 110-120S, NSR. AFEBRILE. NPO. NO SIGNS OF BLEEDING NOTED. AM HgB 7.4- ORDER RECEIVED TO TRANSFUSE 1UNIT PRBC. MA PATENT AND DRAINING CLOUDY CASSI URINE. PT DENIES C/O PAIN OR DISCOMFORT. NO NEURO CHANGES NOTED. NS 100CC/HR PER ORDER- ON STANDBY DURING BLOOD TRANSFUSION. WILL REPORT TO ONCOMING RN WHEN AVAILABLE.
--- NOTE | 2021-02-16 07:30 | NUR ---
ASSUMED CARE OF PATIENT AT 0700 AFTER RECEIVING REPORT FROM SRINIVASA DANIELS RN. PATIENT IS CALM, COOPERATIVE, AND ORIENTED AT THIS TIME. PT DIFFICULT TO UNDERSTAND AT TIMES R/T HX OF CVA. PATIENT IS ON AIRVO 45 L/MIN AND 45% FiO2, TOLERATING WELL WITH 02 SATS >90%. PT HAS WEAK, OCCASIONALLY PRODUCTIVE COUGH WITH THIN GREEN/BROWN SPUTUM. PT IS ABLE TO SLIGHTLY MOVE EXTREMITIES AND FOLLOWS DIRECTIONS WELL. MA CATHETER PATENT AND DRAINING CLOUDY YELLOW URINE. PT HAS NOT HAD A BOWEL MOVEMENT OR EMESIS, BUT DOES HAVE ACTIVE BOWEL SOUNDS SO FAR THIS SHIFT.
--- NOTE | 2021-02-16 09:00 | NUR ---
ASSUMED CARE: REPORT RECEIVED FROM SRINIVASA Pitts RN. ASSUMED CARE OF THIS PT AT APPROX 0700 ALONGSIDE BLOOMING MILL SUPERVISOR NGOC Barber, WHO WILL COMPLETE PRIMARY DOCUMENTATION FOR THIS PT. WILL CONTINUE TO MONITOR & UPDATE NEEDED.
--- NOTE | 2021-02-16 10:00 | NUR ---
DR SMART / DR GONZALEZ: DR SMART HAS BEEN AT BEDSIDE THIS AM TO SEE THE PT. SHE WOULD LIKE RATE OF NS TO BE DECREASED TO 75 ML/HR. SHE ALSO WOULD LIKE THE PT TO REMAIN STRICT NPO UNTIL DR GONZALEZ HAS DETERMINED WHETHER OR NOT SHE WOULD LIKE TO COMPLETE A BRONCH R/T MUCOUS PLUGGING NOTED ON CT. DR GONZALEZ HAS ALSO BEEN AT BEDSIDE TO EVAL THE PT THIS AM. SHE STS SHE HAS NO CURRENT PLANS TO BRONCH BUT WOULD LIKE THE PT TO REMAIN STRICT NPO UNTIL A SPEECH EVAL CAN BE COMPLETED, ORDERS PLACED. CPT ORDERS HAVE BEEN CHANGED TO VEST Q4H & THIS RN HAS NOTIFIED MERYL Ferrer RT, OF THIS CHANGE. NO OTHER CHANGES AT THIS TIME.
[2021-02-16 13:18] LABS: Hematocrit 26.7 % (33.0-51.0); Hemoglobin 8.4 g/dL (11.5-16.0)
[2021-02-16 13:35] LABS: Bun/Creatinine Ratio 34.5 (12.0-20.0); Calcium, Blood 8.5 mg/dL (8.5-10.1); Creatinine, Blood 1.42 mg/dL (0.40-1.00); Potassium, Blood 3.7 mmol/L (3.5-5.5)
--- NOTE | 2021-02-16 17:00 | NUR ---
DR CORTEZ AT BEDSIDE, STATED THAT IF PATIENT IS MORE STABLE, REQUIRING LESS FiO2, THEN AN EGD MAY BE COMPLETED TOMORROW.
--- NOTE | 2021-02-16 19:18 | NUR ---
ASSUMPTION OF CARE RECEIVED REPORT FROM NAY LÓPEZ. ASSUMED CARE OF PATIENT. PATIENT SITTING UP IN BED AIRVO IN PLACE WITH SETTINGS 45% AND 50L WITH SATS OF 93%. PATIENT WITH SUCTION IN REACH. A/O, VITALS STABLE, MA PATENT AND DRAINING CLEAR, YELLOW URINE. CALL LIGHT IN REACH.
--- NOTE | 2021-02-16 19:33 | NUR ---
SHIFT SUMMARY: NO ACUTE CHANGES SINCE PRIOR UPDATES. PT REMAINS A&O, PLEASANT & COOPERATIVE. SHE HAS BEEN ON AIRVO FOR MOST OF THE AFTERNOON W/ SETTINGS: 45 L/MIN & 50%, O2 SATS > 90% ON AVG W/ OCCASIONAL DESATS TO 88% WHEN COUGHING. THE PT COTNINUES TO PRODUCE MOD AMNTS OF THICK BROWN SPUTUM & IS SELF-SUCTIONING W/ YANKAUR. MONITOR SHOWS ST W/ HR 100s, BP STABLE. LOPRESSOR IVP x2 FOR TACHYCARDIA W/ IMPROVEMENT TO HR NOTED, DOWN FROM 120s THIS AM. SHE DENIES NAUSEA OR ABD PAIN, NO BM OR OTHER SIGNS OF GI BLEEDING THIS SHIFT. MA PATENT/ DRAINING CLOUDY YELLOW URINE. SKIN CONDITION OVERALL CDI W/ SLIGHT REDNESS NOTED TO BUTTOCKS & COCCYX THAT IS BLANCHABLE. Q2H REPOSITIONING TO MAINTAIN SKIN INTEGRITY. REPORT GIVEN TO BHAVIN Barber RN TO ASSUME CARE.
--- NOTE | 2021-02-16 23:53 | NUR ---
REASSESSMENT NO ACUTE CHANGES FROM PREVIOUS ASSESSMENT. VITALS STABLE. ORAL CARE COMPLETED WITH SUCTION SWAB. PATIENT ASKED FOR WATER, REMINDED PATIENT IT WASN'T SAFE YET. PATIENT VERBALLY AGREED. REPOSITIONED. VITALS STABLE.
--- NOTE | 2021-02-17 04:00 | NUR ---
REASSESMENT NO ACUTE CHANGES FROM PREVIOUS ASSESSMENT. CHEST XRAY COMPLETE, LABS DRAWN VIA POWERGLIDE. PATIENT DENIED NEEDS OR DISCOMFORTS. HAS CONTINUED TO REMAIN ON AIRVO THROUGH NIGHT 45L AND 50% WITH SATS ABOVE 95%. WILL CONTINUE TO MONITOR, CALL LIGHT IN REACH.
[2021-02-17 04:20] LABS: BASOPHILS ABSOLUTE AUTO 0.04 K/mm3 (0.00-0.23); BASOPHILS PERCENT AUTO 0 % (0-2); Hematocrit 24.9 % (33.0-51.0); Hemoglobin 7.9 g/dL (11.5-16.0); LYMPHOCYTES PERCENT AUTO 4 % (21-46); MONOCYTES PERCENT AUTO 6 % (4-13); Mean Corpuscular HGB 24.8 pg (26.0-34.0); Mean Corpuscular HGB Conc 31.7 g/dL (31.5-36.5); Mean Corpuscular Volume 78 fL (80-100); Mean Platelet Volume 9.9 fL (9.1-12.4); Platelet Count 372 K/mm3 (150-400); RDW Coefficient Variation 18.6 % (11.7-14.2); RDW Standard Deviation 53.5 fL (35.1-46.3); Red Blood Cell Count 3.18 M/mm3 (3.80-5.20); White Blood Cell Count 14.76 K/mm3 (4.00-11.30)
[2021-02-17 04:21] LABS: EOSINOPHILS ABSOLUTE AUTO 0.06 K/mm3 (0.00-0.68); EOSINOPHILS PERCENT AUTO 0 % (0-6); IMMATURE GRAN ABSOLUTE AUTO 0.27 K/mm3 (0.00-0.10); IMMATURE GRAN PERCENT AUTO 2 % (0-1); NEUTROPHILS ABSOLUTE AUTO 12.89 K/mm3 (1.96-9.15); NEUTROPHILS PERCENT AUTO 87 % (41-73)
[2021-02-17 04:46] LABS: Albumin/Globulin Ratio 0.5 (0.8-1.8); Bilirubin, Total 1.1 mg/dL (0.1-1.0); Bun/Creatinine Ratio 39.4 (12.0-20.0); Calcium, Blood 7.7 mg/dL (8.5-10.1); Creatinine, Blood 1.09 mg/dL (0.40-1.00); Globulin, Blood 3.8 g/dL (2.2-4.0); Magnesium, Blood 2.1 mg/dL (1.6-2.4); Potassium, Blood 5.2 mmol/L (3.5-5.5); Total Protein, Blood 5.8 g/dL (6.4-8.2)
--- NOTE | 2021-02-17 06:01 | NUR ---
SHIFT SUMMARY PATIENT REMAINED ON AIRVO AT 45L AND 50% THROUGH NIGHT. 02 SATS MAINTAINED ABOVE 95%. PATIENT WITH IV TO RFA INFILTRATED WITH SMALL, REDDENED AREA NOTED BUT HAS IMPROVED THROUGH NIGHT. ORAL CARE COMPLETED WITH SUCTION SWABS, AND PATIENT KEPT NPO. MA CATHETER REMAINED PATENT. WILL CONTINUE TO MONITOR AND REPORT TO ONCOMING RN.
--- NOTE | 2021-02-17 09:00 | NUR ---
ASSUMED CARE REPORT FROM BHAVIN LÓPEZ AT 0700. PT RESTING IN BED. WAKES c VERBAL STIMULI. A&OX 4. ANSWERS QUESTIONS APPORPRIATELY. DENIES COMPLAINTS OF N/V OR OTHER SYMPTOMS. ABD ROUND, SOFT, NON TENDER. BT X4. ASSISTED TO CHAIR, TWO PERSON ASSIST. AIRVO IN PLACE, 45L/50%. LUNGS DIMINISHED IN BASES. PT c NON PRODUCTIVE COUGH. IVF AT 75 ML/HR. POWERGLIDE TO RUE. VSS. WILL CONTINUE TO MONITOR.
--- NOTE | 2021-02-17 09:52 | NUR ---
DR GONZALEZ ROUNDS PENDING REPEAT SWALLOW EVAL. WILL D/C IVF IF PT PASSES EVAL.
--- NOTE | 2021-02-17 17:16 | NUR ---
SHIFT SUMMARY PT STATUS CHANGED TO PCU. TITRATED TO 3L VIA NC. LUNGS DIMINISHED IN BASES. PT HAS NOT NEEDED SUCTIONING THIS SHIFT. DIET ADVANCED TO PUREE. TOLERATING WELL. DR CORTEZ UPDATED. PLAN FOR ENDOSCOPY TOMORROW AFTERNOON. PT TO BE ON CLEAR LIQUIDS FOR BREAKFAST AND LUNCH, NPO AFTER LUNCH. PT WORKED c PT TODAY. PT UP TO CHAIR SEVERAL TIMES THIS SHIFT. 2 PERSON TRANSFER. PT HAS NO COMPLAINTS. VSS. WILL CONTINUE TO MONITOR UNTIL REPORT TO ONCOMING NURSE.
[2021-02-18 04:03] LABS: BASOPHILS ABSOLUTE AUTO 0.02 K/mm3 (0.00-0.23); BASOPHILS PERCENT AUTO 0 % (0-2); Hematocrit 26.7 % (33.0-51.0); Hemoglobin 8.1 g/dL (11.5-16.0); LYMPHOCYTES ABSOLUTE AUTO 0.64 K/mm3 (0.84-5.20); LYMPHOCYTES PERCENT AUTO 5 % (21-46); MONOCYTES ABSOLUTE AUTO 0.92 K/mm3 (0.16-1.47); MONOCYTES PERCENT AUTO 7 % (4-13); Mean Corpuscular HGB 24.3 pg (26.0-34.0); Mean Corpuscular HGB Conc 30.3 g/dL (31.5-36.5); Mean Corpuscular Volume 80 fL (80-100); Platelet Count 339 K/mm3 (150-400); RDW Coefficient Variation 18.8 % (11.7-14.2); RDW Standard Deviation 54.4 fL (35.1-46.3); Red Blood Cell Count 3.34 M/mm3 (3.80-5.20); White Blood Cell Count 12.81 K/mm3 (4.00-11.30)
[2021-02-18 04:48] LABS: EOSINOPHILS ABSOLUTE AUTO 0.15 K/mm3 (0.00-0.68); EOSINOPHILS PERCENT AUTO 1 % (0-6); IMMATURE GRAN PERCENT AUTO 1 % (0-1); NEUTROPHILS ABSOLUTE AUTO 10.98 K/mm3 (1.96-9.15); NEUTROPHILS PERCENT AUTO 86 % (41-73)
[2021-02-18 05:41] LABS: Albumin, Blood 2.2 g/dL (3.4-5.0); Albumin/Globulin Ratio 0.6 (0.8-1.8); Bilirubin, Total 0.8 mg/dL (0.1-1.0); Bun/Creatinine Ratio 31.2 (12.0-20.0); Calcium, Blood 8.5 mg/dL (8.5-10.1); Creatinine, Blood 1.09 mg/dL (0.40-1.00); Globulin, Blood 3.8 g/dL (2.2-4.0); Potassium, Blood 3.8 mmol/L (3.5-5.5)
--- NOTE | 2021-02-18 05:41 | NUR ---
SHIFT SUMMARY PT WAS ALERT AND ORIENTED, QUIET AND SLOW TO RESPOND. PT WAS ON OXIMISER AT 4-5LPM T/O THE NIGHT WITH O2 SATS >95%. PT WOULD DESAT TO 80'S AT TIMES WHEN SLEEPING DUE TO PRIMARY MOUTH BREATHING. LUNG SOUNDS FINE CRACKLES T/O. PT HAD WEAK, UNPRODUCTIVE COUGH. VITALS STABLE WITH BP 130-150'S SYSTOLIC. HR 90-100'S. PT ABLE TO TAKE MEDICATION WITH APPLESAUCE. PT DID COUGH ON A SPOON OF THICKENED WATER AND HAD A DIFFICULT TIME CLEARING IT. PT SLEPT MOST OF THE NIGHT.
--- NOTE | 2021-02-18 12:14 | NUR ---
REASSESSMENT PT HAS BEEN WEAK AND TIRED APPEARING THIS MORNING. HER VOICE IS VERY QUIET AND SLURRED AT TIMES MAKING IT DIFFICULT TO UNDERSTAND HER. SHE HAS A WEAK COUGH. SHE CONTINUES ON THICKENED LIQUIDS PRIOR TO BEING NPO FOR HER EGD THIS AFTERNOON. PT CAN ONLY TAKE 2-3 SMALL SIPS OF HER THICKENED LIQUID BEFORE SHE TIRES AND COUGHS ON THE NEXT SIP, EVEN FOLLOWING ASPIRATION PRECAUTIONS. HER LUNGS ARE COARSE, BUT HER OXYGEN IS DOWN TO 2L. SR, BP STABLE. LOW GRADE FEVER THIS AM THAT RESOLVED ON ITS OWN. GOT PT UP TO CHAIR WITH LIFT. SMALL SMEAR OF STOOL THIS AM, BROWN. PLAN IS FOR EGD AT 1300. CONTINUING TO MONITOR.
--- NOTE | 2021-02-18 12:42 | NUR ---
TO EGD VIA [facility] WITH DAY SURGERY RN.
--- NOTE | 2021-02-18 13:37 | NUR ---
02/18/21 1337 Benjamin Chang History, Chart, Medications and Allergies reviewed before start of procedure. MONITOR INTACT WITH CONTINUOUS PULSE OXIMETRY AND INTERMITTENT BP. 3-LEAD EKG REVIEWED WITH PHYSICIAN PRIOR TO START OF PROCEDURE. O2 VIA N/C INTACT THROUGHOUT SEDATION/PROCEDURE. Bite Block Placed. See Anesthesia record.
--- NOTE | 2021-02-18 14:37 | NUR ---
PT BACK FROM EGD. PT ALERT, BUT STILL A LITTLE DROWSY. ON 2L/NC. AFEBRILE, SR. HYPERTENSIVE, WILL MONITOR.
--- NOTE | 2021-02-18 18:59 | NUR ---
TRANSFER PT TRANSFERRED TO 337 VIA BED, WITH AIDE. REPORT GIVEN TO MARIBEL LOPEZ. ALL BELONGINGS TRANSPORTED WITH PT.
--- NOTE | 2021-02-18 19:06 | NUR ---
SHIFT SUMMARY- TRANSFER NOTE- PT ARRIVED ON [facility] AT SHIFT CHANGE. REPORT GIVEN TO NIGHT RN AUGUSTUS JUST AFTER THE PT ARRIVED. PT HAS AUDIBLE MOIST LUNGS WET COUGH PRESENT. MA CATH IN PLACE PATENT AND DRAINING. NO S&S OF DISTRESS A THE TIME OF ARRIVAL. NIGHT RN AWARE OF ALL.
--- NOTE | 2021-02-19 07:17 | NUR ---
SHIFT SUMMARY: PATIENT IS A&O TO SELF AND FAMILY, DID NOT KNOW DATE OR THAT SHE WAS STILL IN THE HOSPITAL. BP'S ARE STABLY ELEVATED, ASYMPTOMATIC. SPEECH IS GARBLED, LIPS ARE SWOLLEN, THROAT IS SORE S/P UPPER ENDO 02/18/21. ASPIRATION PRECAUTIONS AT ALL TIMES. SITTING STRAINGHT UP FOR ALL PO FLUIDS, NECTAR THICK BY SPOON. REMIND PT TO CHIN TUCK WITH SWALLOWING. MA IS PATENT FOR CLEAR YELLOW URINE WITH SEDIMENT. LUNGS ARE COARSE THROUGH OUT. BED ALARM IS ON FOR SAFETY.
--- NOTE | 2021-02-19 11:40 | NUR ---
MA AND TELE DISCONTINUED PER DR PENDLETON.
--- NOTE | 2021-02-19 15:58 | NUR ---
PATIENT IS ALERT AND ORIENTED WITH SOME FORGETFULNESS. BP REMAINS ELEVATED; MD AWARE; OTHER VITALS STABLE. PATIENT CONTINUES TO RECIEVE IV ABX WITHOUT S/SX OF ADVERSE REACTIONS NOTED OR REPORTED. CPT, BREATHING TREATMENTS AND DEEP SUCTIONING PER RT SCHEDULED. PATIENT COOPERATIVE WITH CARE. MA CATH REMOVED THIS MORNING; MONITORING FOR FIRST VOID S/P REMOVAL. NO OTHER ACUTE CHANGES TO REPORT OF AT THIS TIME. CALL LIGHT IN REACH.
--- NOTE | 2021-02-20 03:53 | NUR ---
SHIFT SUMMARY: VSS. AFEB. 02 95% ON RA. PT COUGHS WITH ALL PO INTAKE, FOLLOWING DYSPHAGIA GUIDELINES. COUGH IS WEAK AND WET SOUNDING. PROVIDED ORAL SUCTION BUT UNABLE TO CLEAR SPUTUM THAT IS CAUSING VOICE GURGLING. ENCOURAGED COUGH, PT COMPLIES BUT COUGH IS VERY WEAK AND DOESN'T MOVE SPUTUM. RT NOTIFIED. RESPS REG, EVEN, NON-LABORED. INSPIRATORY CRACKLES ASCULTATED TO R LOBE. 02 SAT WNL. PT VOIDING WELL-INCONTINENT. 2 LIQUID BROWN STOOLS-CONTINENT. NO ACUTE OVERINGHT EVENTS. WCTM.
[2021-02-20 06:15] LABS: BASOPHILS ABSOLUTE AUTO 0.03 K/mm3 (0.00-0.23); BASOPHILS PERCENT AUTO 0 % (0-2); EOSINOPHILS ABSOLUTE AUTO 0.12 K/mm3 (0.00-0.68); EOSINOPHILS PERCENT AUTO 1 % (0-6); Hematocrit 28.6 % (33.0-51.0); Hemoglobin 8.8 g/dL (11.5-16.0); IMMATURE GRAN ABSOLUTE AUTO 0.36 K/mm3 (0.00-0.10); IMMATURE GRAN PERCENT AUTO 2 % (0-1); LYMPHOCYTES ABSOLUTE AUTO 1.02 K/mm3 (0.84-5.20); LYMPHOCYTES PERCENT AUTO 6 % (21-46); MONOCYTES ABSOLUTE AUTO 1.19 K/mm3 (0.16-1.47); MONOCYTES PERCENT AUTO 8 % (4-13); Mean Corpuscular HGB Conc 30.8 g/dL (31.5-36.5); Mean Corpuscular Volume 78 fL (80-100); Mean Platelet Volume 9.5 fL (9.1-12.4); NEUTROPHILS PERCENT AUTO 83 % (41-73); Platelet Count 338 K/mm3 (150-400); RDW Coefficient Variation 19.7 % (11.7-14.2); RDW Standard Deviation 55.4 fL (35.1-46.3); Red Blood Cell Count 3.66 M/mm3 (3.80-5.20); White Blood Cell Count 15.92 K/mm3 (4.00-11.30)
[2021-02-20 06:30] LABS: Anion Gap 8 mmol/L (6-16); Blood Urea Nitrogen 16 mg/dL (8-24); Bun/Creatinine Ratio 17.9 (12.0-20.0); CO2, Blood 26 mmol/L (21-32); Chloride, Blood 103 mmol/L (98-108); Creatinine, Blood 0.89 mg/dL (0.40-1.00); Glomerular Filtration Rate >60 (60-); Glucose, Blood 86 mg/dL (70-99); Potassium, Blood 3.4 mmol/L (3.5-5.5); Sodium, Blood 137 mmol/L (136-145)
--- NOTE | 2021-02-20 17:49 | NUR ---
SHIFT SUMMARY PT A&Ox4. PLEASANT AND COOPERATIVE WITH CARE. PT REPORTS FEELING VERY WEAK. PHYSICAL THERAPY EVAL TODAY, WITH PROGRESS TO SITTING AT EDGE OF BED. PT REPORTS PAIN IN THROAT TODAY, WORSE WITH SWALLOWING. MEDICATED PER EMAR. SWALLOWING PRECAUTIONS IN PLACE. RESP THERAPY SEEING PATIENT FOR BREATHING TX AND CPT. LS WET IN BASES, AND WHEEZY IN THE UPPERS. BREATHING WITHOUT DIFFICULTY ON 2L O2. PT PRODUCING EXCESS SPUTUM- SUCTIONING PRN. ORAL CARE Q4. CT CHEST ORDERED FOR TOMORROW 02/20/21. PT SON IN FOR VISIT THIS AFTERNOON, UPDATED ON PLAN OF CARE. VITALS REVIEWED. PT CURRENTLY RESTING IN BED WITH SOFT TOUCH CALL LIGHT IN REACH. DENIES ANY NEEDS AT THIS TIME.
--- NOTE | 2021-02-21 03:47 | NUR ---
SHIFT SUMMARY: AFEB. TACHYCARDIC AT 104. STATES HER THROAT SORENESS IS BEGINNING TO IMPROVE. 02 94% ON 2L VIA NC. PT CONT TO COUGH W/ ALL PO INTAKE AND FREQUENTLY HAS A WET SOUNDING VOICE. ORAL SUCTION REVEALS REMNANTS OF CHOCOLATE PUDDING PT CONSUMED AT HS. DYSPHAGIA PRECAUTIONS IN PLACE. ORAL CARE COMPLETED AND PT OFFERED CARLOSUER TO INDEPENDENTLY PERFORM ORAL SUCTION W/ ASSIST. WEAK COUGH. RHONCHI AUSCULTATED BILATERALLY. HOB REMAINS ELEVATED AT LEAST 30 DEGREES. RESPS EVEN, NON-LABORED. RT WORKING W/ PT, CPT VEST APPLIED TONIGHT. CALLS APPROPRIATELY FOR ASSIST. INCONT OF URINE, CONT OF STOOL. STOOL SOFT, BROWN. NO N/V. ABD SOFT, NON-TENDER, NON-DISTENDED. NO ACUTE OVERNIGHT EVENTS.
[2021-02-21 05:05] LABS: Base Excess Venous 5.9 mmol/L; Bicarbonate Venous 29.7 mmol/L (24.0-30.0); PCO2 Venous 31.2 mmHg (38-42); PO2 Venous 147 mmHg (38-42); pH Blood Venous 7.56 (7.34-7.37)
[2021-02-21 05:39] LABS: BASOPHILS ABSOLUTE AUTO 0.04 K/mm3 (0.00-0.23); BASOPHILS PERCENT AUTO 0 % (0-2); EOSINOPHILS ABSOLUTE AUTO 0.13 K/mm3 (0.00-0.68); EOSINOPHILS PERCENT AUTO 1 % (0-6); Hematocrit 28.6 % (33.0-51.0); Hemoglobin 8.6 g/dL (11.5-16.0); IMMATURE GRAN ABSOLUTE AUTO 0.37 K/mm3 (0.00-0.10); IMMATURE GRAN PERCENT AUTO 2 % (0-1); LYMPHOCYTES ABSOLUTE AUTO 0.75 K/mm3 (0.84-5.20); LYMPHOCYTES PERCENT AUTO 5 % (21-46); MONOCYTES ABSOLUTE AUTO 0.81 K/mm3 (0.16-1.47); MONOCYTES PERCENT AUTO 5 % (4-13); Mean Corpuscular HGB 23.8 pg (26.0-34.0); Mean Corpuscular HGB Conc 30.1 g/dL (31.5-36.5); Mean Corpuscular Volume 79 fL (80-100); Mean Platelet Volume 10.2 fL (9.1-12.4); NEUTROPHILS ABSOLUTE AUTO 13.41 K/mm3 (1.96-9.15); NEUTROPHILS PERCENT AUTO 87 % (41-73); Platelet Count 347 K/mm3 (150-400); RDW Standard Deviation 57.2 fL (35.1-46.3); Red Blood Cell Count 3.61 M/mm3 (3.80-5.20); White Blood Cell Count 15.51 K/mm3 (4.00-11.30)
[2021-02-21 06:04] LABS: Anion Gap 6 mmol/L (6-16); Blood Urea Nitrogen 13 mg/dL (8-24); CO2, Blood 28 mmol/L (21-32); Chloride, Blood 103 mmol/L (98-108); Creatinine, Blood 0.81 mg/dL (0.40-1.00); Free Thyroxine 1.09 ng/dL (0.70-1.60); Glomerular Filtration Rate >60 (60-); Glucose, Blood 95 mg/dL (70-99); Potassium, Blood 3.4 mmol/L (3.5-5.5); Sodium, Blood 137 mmol/L (136-145)
--- NOTE | 2021-02-21 16:31 | NUR ---
Met with teresita and her son to review her symptoms and initiate potential plans of care. pt is alert but some stress with coarse cough and swelling of lips. She states she sometimes gets headaches nad has issures with her lips swelling when dry. She has ahd some dizzines and blance disturbnce in the past. She has had difficulty swallowing before. She has soreness in the chest from coughing. no nausea. Pt has a polst on file that states DNR.her son and her have had much discussion she wavers on recusitaion and being on a ventilator. At this tiem they want full treatment. Son feels capable or stopping futile treaments he is not sure she would want a peg tube. They had a good family facetime visit for mothers day. The patients son had many questions about the swallow study. Carefully reviewed the process and what the diagnostic is reviewing. He is hoping that she will recover from the scope and regain an effective swallow. PT is concerned that if she get sicker she cannot stay at her assisted living facility. Team review of patient with nursing and repriatory therapy. Will meet with rashawn tomorrow after exam and formulate prognostication. pt high risk for readmissions and failure to thrive.
--- NOTE | 2021-02-21 18:28 | NUR ---
PT IS A/O X4. SHE HAS A HARD TIME GETTING HER WORDS OUT DUE TO THE SECRETIONS. PT IS 2 L OF 02 VIA NC, HAS BEEN EXPERINCING DYSHAGIA THROUGHOUT THE DAY. THE PT IS NPO AND SCHEDULED FOR A BARIUM SWALLOW STUDY IN THE AM. PT HAS BEEN RECEIVING SUCTIONING AND ORAL CARE Q2H OR PRN. PT WILL CALL FOR A BEDPAN AND IS SOMETIMES I/C. THE PT RECEIVED A CLONIDINE PATCH TODAY FOR HER BP.
--- NOTE | 2021-02-21 19:47 | NUR ---
CALL TO HOSPITALIST / TEMP 101.7 SPOKE W/ SASHA ROQUE NP RE: DEVELOPMENT OF FEVER TONIGHT. BLOOD CX, RESUME ABT, SD TYL.
--- NOTE | 2021-02-22 03:43 | NUR ---
SHIFT SUMMARY: VSS. AFEB THIS AM. 02 93% ON 2L VIA NC. RHONCHI AUSCULTATED BILATERALLY. FREQUENT WEAK COUGH PRODUCING MOD AMTS OF WHITE/SHARMA SPUTUM. RESPS EVEN, NON-LABORED. CPT PERFORMED BY RT. PT REMAINS NPO. FREQUENT ORAL CARE AND ORAL SUCTIONING NEEDED. HOB ELEVATED. IV ABT INFUSED PER ORDERS. CLINIMIX INFUSING CONTINUOUSLY. WCTM.
--- NOTE | 2021-02-22 19:19 | NUR ---
SHIFT SUMMARY: PATIENT A&O; CALM AND COOPERATIVE WITH CARE. PT FAILED MODIFIED BARIUM SWALLOW THIS SHIFT; STRICT NPO. ASPIRATION PNA; WEAK COUGH; SUCTION AT BEDSIDE. CLINIMIX @ 125. IV STEROIDS CONTINUING. REPORT GIVEN TO ONCOMING RN.
--- NOTE | 2021-02-23 00:09 | NUR ---
ANXIOUS PT REPORTS SHE IS UNABLE TO REST/SLEEP & FEELS VERY RESTLESS & ANXIOUS ABOUT NOT SLEEPING. MEDICATED c 0.5 MG IV ATIVAN, WILL MONITOR FOR EFFECTIVENESS.
[2021-02-23 05:11] LABS: BASOPHILS ABSOLUTE AUTO 0.01 K/mm3 (0.00-0.23); BASOPHILS PERCENT AUTO 0 % (0-2); EOSINOPHILS PERCENT AUTO 0 % (0-6); Hematocrit 27.2 % (33.0-51.0); Hemoglobin 8.2 g/dL (11.5-16.0); IMMATURE GRAN ABSOLUTE AUTO 0.15 K/mm3 (0.00-0.10); IMMATURE GRAN PERCENT AUTO 2 % (0-1); LYMPHOCYTES ABSOLUTE AUTO 0.44 K/mm3 (0.84-5.20); LYMPHOCYTES PERCENT AUTO 5 % (21-46); MONOCYTES ABSOLUTE AUTO 0.22 K/mm3 (0.16-1.47); MONOCYTES PERCENT AUTO 2 % (4-13); Mean Corpuscular HGB 23.7 pg (26.0-34.0); Mean Corpuscular HGB Conc 30.1 g/dL (31.5-36.5); Mean Corpuscular Volume 79 fL (80-100); Mean Platelet Volume 10.2 fL (9.1-12.4); NEUTROPHILS ABSOLUTE AUTO 8.22 K/mm3 (1.96-9.15); NEUTROPHILS PERCENT AUTO 91 % (41-73); Platelet Count 466 K/mm3 (150-400); RDW Coefficient Variation 20.1 % (11.7-14.2); RDW Standard Deviation 57.3 fL (35.1-46.3); Red Blood Cell Count 3.46 M/mm3 (3.80-5.20); White Blood Cell Count 9.04 K/mm3 (4.00-11.30)
--- NOTE | 2021-02-23 05:33 | NUR ---
SHIFT SUMMARY AOX2/3-UNAWARE DATE & FORGETS SHE'S IN HOSPITAL @TIMES. FORGETFUL/CONFUSED @TIMES. FOLLOWS DIRECTIONS. SLOW TO RESPOND, SLURRED SPEECH & DIFFICULT TO UNDERSTAND @TIMES R/T ORAL SWELLING. BOTTOM LIP & TONGUE ARE RED SWOLLEN, DRY, PAINFUL. GAVE PO CARE FREQUENTLY. LIP SWELLING LOOKS LIKE IT HAS DECREASED FROM LAST NIGHT. STRICT NPO R/T FAILED BARIUM SWALLOW EVAL YESTERDAY. RECIEVING CLINAMIX. VSS. SPO2 >90% ON 2L. BREATH SOUNDS COARSE. DENIES SOB, N/V OR PAIN, EXCEPT c PO CARE. LRG INCONT LIQUID BM THIS SHIFT. INCONT URINE, CHANGED PRN. CALL LIGHT & BED ALARM IN PLACE FOR SAFETY. WILL CONT TO MONITOR.
[2021-02-23 05:55] LABS: Anion Gap 6 mmol/L (6-16); Blood Urea Nitrogen 32 mg/dL (8-24); Bun/Creatinine Ratio 44.8 (12.0-20.0); CO2, Blood 26 mmol/L (21-32); Calcium, Blood 8.3 mg/dL (8.5-10.1); Chloride, Blood 100 mmol/L (98-108); Creatinine, Blood 0.72 mg/dL (0.40-1.00); Glomerular Filtration Rate >60 (60-); Glucose, Blood 143 mg/dL (70-99); Magnesium, Blood 2.3 mg/dL (1.6-2.4); Potassium, Blood 4.8 mmol/L (3.5-5.5); Sodium, Blood 132 mmol/L (136-145)
[2021-02-23 13:24] LABS: C DIFFICILE DNA Negative (Negative)
--- NOTE | 2021-02-23 18:01 | NUR ---
SHIFT SUMMARY: NO ACUTE CHANGES TO REPORT THIS SHIFT. PT A&O; CALM AND COOPERATIVE WITH CARE. NO C/O PAIN / NAUSEA THIS SHIFT. PT REMAINS STRICT NPO R/T FAILED SWALLOW EVAL 02/22; FOLLOW UP EVAL PLANNED FOR 02/24. CLINIMIX @ 125; IV STEROIDS. PT & OT FOLLOWING. WCTM.
[2021-02-24 07:04] LABS: BASOPHILS ABSOLUTE AUTO 0.01 K/mm3 (0.00-0.23); BASOPHILS PERCENT AUTO 0 % (0-2); EOSINOPHILS PERCENT AUTO 0 % (0-6); Hematocrit 26.8 % (33.0-51.0); IMMATURE GRAN PERCENT AUTO 1 % (0-1); LYMPHOCYTES ABSOLUTE AUTO 0.42 K/mm3 (0.84-5.20); LYMPHOCYTES PERCENT AUTO 4 % (21-46); MONOCYTES ABSOLUTE AUTO 0.33 K/mm3 (0.16-1.47); MONOCYTES PERCENT AUTO 3 % (4-13); Mean Corpuscular HGB 23.6 pg (26.0-34.0); Mean Corpuscular HGB Conc 29.9 g/dL (31.5-36.5); Mean Corpuscular Volume 79 fL (80-100); Mean Platelet Volume 10.2 fL (9.1-12.4); NEUTROPHILS ABSOLUTE AUTO 8.77 K/mm3 (1.96-9.15); NEUTROPHILS PERCENT AUTO 91 % (41-73); Platelet Count 558 K/mm3 (150-400); RDW Coefficient Variation 20.6 % (11.7-14.2); RDW Standard Deviation 58.7 fL (35.1-46.3); Red Blood Cell Count 3.39 M/mm3 (3.80-5.20); White Blood Cell Count 9.63 K/mm3 (4.00-11.30)
[2021-02-24 07:35] LABS: Alanine Aminotransfer (ALT/SGP 30 U/L (12-78); Albumin/Globulin Ratio 0.5 (0.8-1.8); Alk Phos 62 U/L (50-136); Anion Gap 5 mmol/L (6-16); Aspartate Aminotrans (AST/SGOT 31 U/L (12-37); Bilirubin, Total 0.2 mg/dL (0.1-1.0); Blood Urea Nitrogen 37 mg/dL (8-24); Bun/Creatinine Ratio 49.3 (12.0-20.0); CO2, Blood 28 mmol/L (21-32); Calcium, Blood 8.1 mg/dL (8.5-10.1); Chloride, Blood 99 mmol/L (98-108); Creatinine, Blood 0.75 mg/dL (0.40-1.00); Globulin, Blood 3.7 g/dL (2.2-4.0); Glomerular Filtration Rate >60 (60-); Glucose, Blood 148 mg/dL (70-99); Sodium, Blood 132 mmol/L (136-145); Total Protein, Blood 5.7 g/dL (6.4-8.2)
--- NOTE | 2021-02-24 18:19 | NUR ---
PT IS A/OX3, PLEASANT AND COOPERATIVE, THE PT IS UP WITH MODERATE ASSIST TO THE CHAIR AND BSC, THE PT APPEARS TO BE BREATHING EASILY AT REST ON O2 @ 2L/MIN, THIS AM THE PT NEEDED EXTENSIVE ORAL CARE, THE HEAD CAGER, SPEECH THERAPIST AND MYSELF GAVE THE PT ORAL T/O THE DAY. THE PT WAS GIVEN SMALL SPOONFULL SIPS OF ENSURE, HOWEVER THE PT DID NOT TOLERATE IT VERY WELL AND DECLINED IT TOWARD THE AFTERNOON, THE PT WAS UP IN THE RECLINER TODAY FOR SEVERAL HOURS, THE PT HAD A FAMILY MEMBER IN TO VISIT THIS AFTERNOON, CALL LIGHT IN REACH, WILL CONTINUE TO MONITOR AND ASSESS FOR CHANGES
[2021-02-25 06:03] LABS: BASOPHILS ABSOLUTE AUTO 0.02 K/mm3 (0.00-0.23); BASOPHILS PERCENT AUTO 0 % (0-2); EOSINOPHILS PERCENT AUTO 0 % (0-6); Hematocrit 28.2 % (33.0-51.0); Hemoglobin 8.4 g/dL (11.5-16.0); IMMATURE GRAN PERCENT AUTO 1 % (0-1); LYMPHOCYTES ABSOLUTE AUTO 0.39 K/mm3 (0.84-5.20); LYMPHOCYTES PERCENT AUTO 4 % (21-46); MONOCYTES ABSOLUTE AUTO 0.39 K/mm3 (0.16-1.47); MONOCYTES PERCENT AUTO 4 % (4-13); Mean Corpuscular HGB 23.8 pg (26.0-34.0); Mean Corpuscular HGB Conc 29.8 g/dL (31.5-36.5); Mean Corpuscular Volume 80 fL (80-100); Mean Platelet Volume 9.9 fL (9.1-12.4); NEUTROPHILS ABSOLUTE AUTO 9.04 K/mm3 (1.96-9.15); NEUTROPHILS PERCENT AUTO 91 % (41-73); Platelet Count 714 K/mm3 (150-400); RDW Coefficient Variation 20.8 % (11.7-14.2); RDW Standard Deviation 59.8 fL (35.1-46.3); Red Blood Cell Count 3.53 M/mm3 (3.80-5.20); White Blood Cell Count 9.94 K/mm3 (4.00-11.30)
[2021-02-25 06:27] LABS: Anion Gap 4 mmol/L (6-16); Blood Urea Nitrogen 41 mg/dL (8-24); Bun/Creatinine Ratio 51.6 (12.0-20.0); CO2, Blood 28 mmol/L (21-32); Calcium, Blood 8.4 mg/dL (8.5-10.1); Chloride, Blood 100 mmol/L (98-108); Glomerular Filtration Rate >60 (60-); Glucose, Blood 147 mg/dL (70-99); Potassium, Blood 5.1 mmol/L (3.5-5.5); Sodium, Blood 132 mmol/L (136-145)
--- NOTE | 2021-02-25 06:41 | NUR ---
SHIFT SUMMARY- PT. A&O, 2 ASSIST. LOWER LIP SWOLLEN AND SORES IN ORAL CAVITY. ORAL CARE PERFORMED SEVERAL TIMES T/O THE NIGHT, PT. TOLERATED WELL. ALSO SUCTION DONE PRN. PT. NPO, ON CLINIMIX. PG DSG CHANGED LAST NIGHT. PT. HAD 2 EPISODES OF LOOSE STOOLS THIS AM. MEDICATED FOR MOUTH PAIN 1X LAST NIGHT WITH GOOD EFFECT. VSS. CALL LIGHT WITHIN REACH AND SIDE RAILS UPX2. WILL CONT TO MONITOR.
--- NOTE | 2021-02-25 17:39 | NUR ---
Briefly met with pt today, she was in a conversation with a ROSE GRADER and appeared quite engaged. Her nurse tells me the swelling has continud to subside, and it is likely she will return to a regular diet once the swelling has subsided. No changes needed at this time.
--- NOTE | 2021-02-25 17:55 | NUR ---
PT IS A/OX3, PLEASANT AND COOPERATIVE, THE PT IS UP WITH ASSIST TO THE CHAIR, THE PT WAS WEANED OFF OXYGEN TODAY, THE PT CONTINUES TO HAVE MOUTH PAIN , PT REMAINED NPO TODAY, PT DOES REPORT SOME IMPROVEMENT HOWEVER, PT WAS STARTED ON PPN TODAY, MOUTH CARE WAS GIVEN T/O THE DAY. CALL LIGHT IN REACH, WILL CONTINUE TO MONITOR AND ASSESS FOR CHANGES
--- NOTE | 2021-02-26 04:34 | NUR ---
IMPORT DISPATCHER SUMMARY NO ACUTE CHANGES THIS SHIFT. PT AAOX4. NO BM'S ASIDE FROM SOME SMALL SMEARS IN ATTENDS, NO BLOOD NOTED. ASSISTED PT TO BSC MANY TIMES THROUGH THE NIGHT, IS VERY SLOW MOVING WHEN STANDING UP AND REQUIRES ASSISTANCE TO STAND UP FROM BED/CHAIR. PT IS QUITE IRRITABLE AT TIMES AND CAN BE RUDE TO STAFF WHILE BEING ASSISTED. PT HAS BEEN USING CALL LIGHT FREQUENTLY THROUGH THE NIGHT, REQUESTING ASSISTANCE NUMEROUS TIMES EVERY HOUR AND SEVERAL TIMES CALLING FOR ASSISTANCE AGAIN BEFORE STAFF IS EVEN ABLE TO LEAVE HER ROOM. VERY DEMANDING AT TIMES. PT LATER REPORTED TO SAMPLE PREP TECHNICIAN THAT SHE WAS TELLING HER SON ON THE PHONE THAT SHE "WANTED TO GO TO A HOSPITAL IN [place] BECAUSE NOBODY IS HELPING ME HERE". WHEN ASKED WHAT MORE SHE NEEDED OR WHAT ELSE WE COULD DO TO HELP PT WOULD NOT ELABORATE AND WOULD ROLL HER EYES. VITALS HAVE BEEN STABLE AND PT HAS BEEN ABLE TO REMAIN ON ROOM AIR THROUGH THE NIGHT. WILL CONTINUE TO MONITOR UNTIL DAY SHIFT RN ASSUMES CARE.
[2021-02-26 05:39] LABS: BASOPHILS ABSOLUTE AUTO 0.01 K/mm3 (0.00-0.23); BASOPHILS PERCENT AUTO 0 % (0-2); EOSINOPHILS PERCENT AUTO 0 % (0-6); Hematocrit 28.3 % (33.0-51.0); Hemoglobin 8.6 g/dL (11.5-16.0); IMMATURE GRAN ABSOLUTE AUTO 0.14 K/mm3 (0.00-0.10); IMMATURE GRAN PERCENT AUTO 1 % (0-1); LYMPHOCYTES PERCENT AUTO 5 % (21-46); MONOCYTES ABSOLUTE AUTO 0.67 K/mm3 (0.16-1.47); MONOCYTES PERCENT AUTO 7 % (4-13); Mean Corpuscular HGB 24.2 pg (26.0-34.0); Mean Corpuscular HGB Conc 30.4 g/dL (31.5-36.5); Mean Corpuscular Volume 80 fL (80-100); Mean Platelet Volume 9.7 fL (9.1-12.4); NEUTROPHILS ABSOLUTE AUTO 8.81 K/mm3 (1.96-9.15); NEUTROPHILS PERCENT AUTO 87 % (41-73); Platelet Count 758 K/mm3 (150-400); RDW Standard Deviation 60.6 fL (35.1-46.3); Red Blood Cell Count 3.56 M/mm3 (3.80-5.20); White Blood Cell Count 10.13 K/mm3 (4.00-11.30)
[2021-02-26 05:55] LABS: Anion Gap 5 mmol/L (6-16); Blood Urea Nitrogen 35 mg/dL (8-24); CO2, Blood 27 mmol/L (21-32); Calcium, Blood 8.3 mg/dL (8.5-10.1); Chloride, Blood 101 mmol/L (98-108); Creatinine, Blood 0.74 mg/dL (0.40-1.00); Glomerular Filtration Rate >60 (60-); Glucose, Blood 137 mg/dL (70-99); Potassium, Blood 4.7 mmol/L (3.5-5.5); Sodium, Blood 133 mmol/L (136-145); Triglycerides 106 mg/dL (30-160)
--- NOTE | 2021-02-26 16:38 | NUR ---
PT IS A&O/4, CALLS APPROPRIATELY WHEN SHE NEEDS TO USE THE BEDPAN OR BSC. SHE IS ON RA, AND DENIES ANY SOB OR DYPNEA. THE PT HAS BEEN RECEIVING LIDOCAINE, COOL WASH CLOTH'S AND LEMON GLYCERINE SWABS FOR HER SWOLLEN LIPS AND MOUTH. THE PT WORKED WITH PT AND OT TODAY AND TOLERATED IT WELL. SHE STILL HAS SOME WEAKNESS IN THE LLE.
--- NOTE | 2021-02-26 18:11 | NUR ---
SN ASSESSMENT I HAVE REVIEWED SN [place]'S AM SHIFT ASSESMENT AND AGREE WITH THAT, AND HAVE REVIEWED HER CHART DOCUMENTATINS
[2021-02-27 05:10] LABS: BASOPHILS ABSOLUTE AUTO 0.01 K/mm3 (0.00-0.23); BASOPHILS PERCENT AUTO 0 % (0-2); EOSINOPHILS PERCENT AUTO 0 % (0-6); Hematocrit 27.1 % (33.0-51.0); Hemoglobin 8.3 g/dL (11.5-16.0); IMMATURE GRAN ABSOLUTE AUTO 0.13 K/mm3 (0.00-0.10); IMMATURE GRAN PERCENT AUTO 1 % (0-1); LYMPHOCYTES ABSOLUTE AUTO 0.55 K/mm3 (0.84-5.20); LYMPHOCYTES PERCENT AUTO 6 % (21-46); MONOCYTES ABSOLUTE AUTO 0.68 K/mm3 (0.16-1.47); MONOCYTES PERCENT AUTO 7 % (4-13); Mean Corpuscular HGB 23.6 pg (26.0-34.0); Mean Corpuscular HGB Conc 30.6 g/dL (31.5-36.5); Mean Corpuscular Volume 77 fL (80-100); Mean Platelet Volume 9.3 fL (9.1-12.4); NEUTROPHILS ABSOLUTE AUTO 8.45 K/mm3 (1.96-9.15); NEUTROPHILS PERCENT AUTO 86 % (41-73); Platelet Count 856 K/mm3 (150-400); RDW Coefficient Variation 21.2 % (11.7-14.2); RDW Standard Deviation 59.7 fL (35.1-46.3); Red Blood Cell Count 3.51 M/mm3 (3.80-5.20); White Blood Cell Count 9.82 K/mm3 (4.00-11.30)
[2021-02-27 05:35] LABS: Anion Gap 5 mmol/L (6-16); Blood Urea Nitrogen 30 mg/dL (8-24); Bun/Creatinine Ratio 39.5 (12.0-20.0); CO2, Blood 27 mmol/L (21-32); Calcium, Blood 8.4 mg/dL (8.5-10.1); Chloride, Blood 102 mmol/L (98-108); Creatinine, Blood 0.76 mg/dL (0.40-1.00); Glomerular Filtration Rate >60 (60-); Glucose, Blood 139 mg/dL (70-99); Potassium, Blood 4.4 mmol/L (3.5-5.5); Sodium, Blood 134 mmol/L (136-145)
--- NOTE | 2021-02-27 06:25 | NUR ---
SHIFT SUMMARY PATIENT ALERT AND ORIENTED. HAD NO COMPLAINTS OF PAIN OR SHORTNESS OF BREATH. PATIENT REPORTED FEELING WEAK LAST NIGHT AND ELECTED TO USE THE BEDPAN WHEN NEEDING TO USE THE BATHROOM. PWERGLIDE PATENT AND INFUSING. BED IN LOWEST POSITION WITH WHEELS LOCKED AND ALARM ON. CALL LIGHT WITHIN REACH. REPORT GIVEN TO ONCOMING RN.
--- NOTE | 2021-02-27 18:40 | NUR ---
SHIFT SUMMARY: NO ACUTE EVENTS. ORAL MUCOSA WITH SWELLING, CRACKING, AND BURNING. DECLINED ORAL CARE [id number] AND SUCTION SWABS; USING QTIPS AND SHE IS SWISHING AND SPITTING COOL WATER OFTEN. BOTTOM LIP SWOLLEN AND ULCERATED, USING MOISTURIZER. PER RESP CARE, PT HAD BEEN REFUSING CHEST PT; EDUCATED HER ABOUT HOW THIS WAS HELPING CLEAR HER LUNGS OF MUCOUS AND WOULD SPEED HER RECOVERY FROM PNA. SHE HAS AGREED TO PARTICIPATE. UP IN CHAIR MOST OF THE DAY. DENIED PAIN. WORKED WITH PHYSICAL THERAPY. SON VISITED FOR A COUPLE OF HOURS THIS AFTERNOON.
--- NOTE | 2021-02-28 05:26 | NUR ---
SUMMARY PT VERB SHE DOES NOT WISH TO BE A DNR. STATES SHE DOES NOT FEEL SHE IS SICK ENOUGH NOW TO WARRANT DNR STATUS.I CALLED DR SWANSON AND ADVISED.PT WAS CHANGED TO FULL CODE. PT HAS POLST IN CHART WHICH WILL NEED TO BE RE-ADDRESSED DUE TO CHANGE IN PT WISHES.I ADVISED PT THIS WILL NEED TO BE RE-EVALUATED WITH DOCTOR TODAY.PT VERB UNDERSTANDING.
[2021-02-28 06:28] LABS: BASOPHILS ABSOLUTE AUTO 0.01 K/mm3 (0.00-0.23); BASOPHILS PERCENT AUTO 0 % (0-2); EOSINOPHILS PERCENT AUTO 0 % (0-6); Hematocrit 28.4 % (33.0-51.0); Hemoglobin 8.5 g/dL (11.5-16.0); IMMATURE GRAN ABSOLUTE AUTO 0.17 K/mm3 (0.00-0.10); IMMATURE GRAN PERCENT AUTO 2 % (0-1); LYMPHOCYTES PERCENT AUTO 6 % (21-46); MONOCYTES ABSOLUTE AUTO 0.85 K/mm3 (0.16-1.47); MONOCYTES PERCENT AUTO 9 % (4-13); Mean Corpuscular HGB 23.5 pg (26.0-34.0); Mean Corpuscular HGB Conc 29.9 g/dL (31.5-36.5); Mean Corpuscular Volume 79 fL (80-100); Mean Platelet Volume 9.1 fL (9.1-12.4); NEUTROPHILS ABSOLUTE AUTO 8.34 K/mm3 (1.96-9.15); NEUTROPHILS PERCENT AUTO 84 % (41-73); Platelet Count 943 K/mm3 (150-400); RDW Coefficient Variation 21.4 % (11.7-14.2); RDW Standard Deviation 61.5 fL (35.1-46.3); Red Blood Cell Count 3.61 M/mm3 (3.80-5.20); White Blood Cell Count 9.97 K/mm3 (4.00-11.30)
--- NOTE | 2021-02-28 18:39 | NUR ---
SHIFT SUMMARY: NO ACUTE EVENTS. HAVING BURNING PAIN IN MOUTH AND LIPS, DECLINED OFFERED PAIN MEDICATIONS. ORAL MUCOSA APPEARS IMPROVED, BUT STILL WITH EDEMA AND REDNESS. STATED SHE CANNOT TOLERATE USING SUCTION SPONGES FOR ORAL CARE BUT IS USING LEMON SWABS AND RINSING MOUTH WITH COOL WATER OFTEN, APPLYING MOISTURIZER TO LIPS. RECEIVING PPN AND ABX. GETTING UP TO BSC WITH MAX ASSIST, WAS ABLE TO TAKE A SHOWER TODAY (WITH ASSISTANCE). NPO D/T DYSPHAGIA; ATTEMPTED TO GIVE PO MEDICATION ORDERED BY PROVIDER BUT PT UNABLE TO SWALLOW EVEN SMALL SIP OF WATER, PROVIDER NOTIFIED AND MEDICATION HELD.
--- NOTE | 2021-03-01 02:40 | NUR ---
SHIFT SUMMARY PATIENT ALERT AND ORIENTED. HAD NO COMPLAINTS OF PAIN OR SHORTNESS OF BREATH. PATIENT AWAKE MUCH OF THE NIGHT AND HAVING TROUBLE SLEEPING. NO ACUTE ISSUES NOTED. IV PATENT AND INFUSING. BED IN LOWEST POSITION WITH WHEELS LOCKED. CALL LIGHT WITHIN REACH.
--- NOTE | 2021-03-01 02:56 | NUR ---
RN TO ASSISTANT MANAGER OF OPERATIONS OF PATIENT. REPORT TAKEN FROM CASEY LÓPEZ.
[2021-03-01 06:05] LABS: BASOPHILS PERCENT AUTO 0 % (0-2); EOSINOPHILS PERCENT AUTO 0 % (0-6); Hematocrit 27.9 % (33.0-51.0); Hemoglobin 8.3 g/dL (11.5-16.0); IMMATURE GRAN ABSOLUTE AUTO 0.12 K/mm3 (0.00-0.10); IMMATURE GRAN PERCENT AUTO 1 % (0-1); LYMPHOCYTES ABSOLUTE AUTO 0.53 K/mm3 (0.84-5.20); LYMPHOCYTES PERCENT AUTO 6 % (21-46); MONOCYTES ABSOLUTE AUTO 0.57 K/mm3 (0.16-1.47); MONOCYTES PERCENT AUTO 7 % (4-13); Mean Corpuscular HGB 23.6 pg (26.0-34.0); Mean Corpuscular HGB Conc 29.7 g/dL (31.5-36.5); Mean Corpuscular Volume 79 fL (80-100); NEUTROPHILS ABSOLUTE AUTO 7.07 K/mm3 (1.96-9.15); NEUTROPHILS PERCENT AUTO 85 % (41-73); Platelet Count 888 K/mm3 (150-400); RDW Coefficient Variation 21.2 % (11.7-14.2); RDW Standard Deviation 60.8 fL (35.1-46.3); Red Blood Cell Count 3.52 M/mm3 (3.80-5.20); White Blood Cell Count 8.29 K/mm3 (4.00-11.30)
[2021-03-01 06:25] LABS: Anion Gap 6 mmol/L (6-16); Blood Urea Nitrogen 29 mg/dL (8-24); Bun/Creatinine Ratio 38.1 (12.0-20.0); CO2, Blood 25 mmol/L (21-32); Calcium, Blood 8.2 mg/dL (8.5-10.1); Chloride, Blood 103 mmol/L (98-108); Creatinine, Blood 0.76 mg/dL (0.40-1.00); Glomerular Filtration Rate >60 (60-); Glucose, Blood 146 mg/dL (70-99); Potassium, Blood 4.2 mmol/L (3.5-5.5); Sodium, Blood 134 mmol/L (136-145)
--- NOTE | 2021-03-01 18:11 | NUR ---
SHIFT SUMMARY PT ALERT BUT CONFUSED AT TIMES AT BASELINE PER SON. SON STATED THAT PT USUALLY HAVE A HARD TIME USING HER SHORT TERM MEMORY. PT NPO STILL AT THIS TIME. PT DID POORLY ON HER SWALLOW TEST TODAY. PT MOUTH IS GETTING BETTER. DENIES PAIN OR ANY CONCERNS DURING THIS SHIFT. PT STILL RECEIVING TPN. BED IS IN THE LOWEST POSITION AND CALL LIGHT WITHIN REACH
--- NOTE | 2021-03-02 04:58 | NUR ---
SHIFT SUMMARY NO ACUTE CHANGES THIS SHIFT. AOX3, FORGETFUL. VSS. DENIES PAIN, N/V OR DYSPNEA. NPO FOR FAILED SWALLOW EVAL YESTERDAY, RECIEVING TPN. BOTTOM LIP & ORAL CAVITIY HAVE IMPROVED PER PT. INCONT/CONT OF URINE. CALL LIGHT & BED ALARM IN PLACE FOR SAFETY.
--- NOTE | 2021-03-02 18:32 | NUR ---
SHIFT SUMMARY PT ALERT; CONFUSED AT TIMES. PT 1P TO BSC. PT HAS MEPELEX ON BUTTOCK AREA FOR PROTECTION AND INTACT. PT HAD BARRIUM MODIFIED SWALLOW EVAL TODAY AND DID POORLY- SEE NOTE; GI CONSULTED FOR PEG TUBE PLACEMENT PER DR AND PATIENT TRANSPORT OFFICER. ULCER MOUTH IS BETTER PER PT. CREAM APPLIED PRN. PT ALSO RECEIVING MEDICATION FOR IT. PT TPN IS STILL RUNNING WHILE AWAITS FOR GI. PT AL POWERGLIDE INFILTRATED TODAY; SKIN TIGHT NO LEAKING- INFORMED MOISTURE METER OPERATOR AND PLACED ANOTHER POWERGLIDE FOR TPN. ENCOURAGED TO ELEVATE THE ARM. BED IS IN THE LOWEST POSITION AND CALL LIGHT WITHIN REACH
--- NOTE | 2021-03-03 05:40 | NUR ---
SHIFT SUMMARY NO ACUTE CHANGES THIS SHIFT. AOX3-FORGETFUL @TIMES. VSS. PLEASENT & COOPERATIVE. DENIES PAIN, N/V OR SOB. PO SWELLING & ULCERS HAVE "GOTTEN BETTER" PER PT. GI CONSULTED FOR POSSIBLE PEG TUBE SINCE PT FAILED BARIUM SWALLOW EVAL AGAIN YESTERDAY. TPN @95ML/HR. CALL LIGHT IN REACH & PT ABLE TO MAKE NEEDS KNOWN. WILL MONITOR.
[2021-03-03 06:50] LABS: Anion Gap 6 mmol/L (6-16); Blood Urea Nitrogen 31 mg/dL (8-24); CO2, Blood 24 mmol/L (21-32); Chloride, Blood 105 mmol/L (98-108); Creatinine, Blood 0.76 mg/dL (0.40-1.00); Glomerular Filtration Rate >60 (60-); Glucose, Blood 128 mg/dL (70-99); Potassium, Blood 4.3 mmol/L (3.5-5.5); Sodium, Blood 135 mmol/L (136-145)
[2021-03-03 07:28] LABS: BASOPHILS ABSOLUTE AUTO 0.01 K/mm3 (0.00-0.23); BASOPHILS PERCENT AUTO 0 % (0-2); EOSINOPHILS ABSOLUTE AUTO 0.01 K/mm3 (0.00-0.68); EOSINOPHILS PERCENT AUTO 0 % (0-6); Hematocrit 27.9 % (33.0-51.0); Hemoglobin 8.6 g/dL (11.5-16.0); IMMATURE GRAN ABSOLUTE AUTO 0.14 K/mm3 (0.00-0.10); IMMATURE GRAN PERCENT AUTO 1 % (0-1); LYMPHOCYTES ABSOLUTE AUTO 0.75 K/mm3 (0.84-5.20); LYMPHOCYTES PERCENT AUTO 7 % (21-46); MONOCYTES ABSOLUTE AUTO 0.88 K/mm3 (0.16-1.47); MONOCYTES PERCENT AUTO 9 % (4-13); Mean Corpuscular HGB 23.8 pg (26.0-34.0); Mean Corpuscular HGB Conc 30.8 g/dL (31.5-36.5); Mean Corpuscular Volume 77 fL (80-100); Mean Platelet Volume 9.1 fL (9.1-12.4); NEUTROPHILS ABSOLUTE AUTO 8.55 K/mm3 (1.96-9.15); NEUTROPHILS PERCENT AUTO 83 % (41-73); Platelet Count 952 K/mm3 (150-400); RDW Coefficient Variation 21.5 % (11.7-14.2); RDW Standard Deviation 60.4 fL (35.1-46.3); Red Blood Cell Count 3.61 M/mm3 (3.80-5.20); White Blood Cell Count 10.34 K/mm3 (4.00-11.30)
--- NOTE | 2021-03-03 14:31 | NUR ---
03/03/21 1431 Benjamin Chang History, Chart, Medications and Allergies reviewed before start of procedure. MONITOR INTACT WITH CONTINUOUS PULSE OXIMETRY AND INTERMITTENT BP. O2 VIA N/C INTACT THROUGHOUT SEDATION/PROCEDURE. See Anesthesia record. PONSKY "PULL" PEG KIT WITH SOFT SILICONE RETENTION DOME 20 F REF- [id number] LOT- [id number] WAS INSERTED DURING PROCEDURE.
--- NOTE | 2021-03-03 15:37 | NUR ---
RECIEVED REPORT FROM KENDELL IN DAY SURGERY. PATIENT IS RECOVERING AND WILL BE RETURNING TO ROOM 337.
--- NOTE | 2021-03-03 16:37 | NUR ---
PATIENT HAS BEEN PLEASANT AND COOPERATIVE WITH STAFF. PATIENT CONTINUES ON IV ANTIVIRALS AND IV STEROIDS WITHOUT S/SX OF ADVERSE REACTIONS NOTED OR REPORTED. PATIENT WENT FOR PEG TUBE PLACEMENT THIS AFTERNOON AND ALL SEEMED TO GO WELL; PATIENT HAS RETURNED TO HER ROOM NOW AND IS COMPLAINING OF SOME MINOR DISCOMFORT TO THE SURGICAL SITE. DR SINGH CAME AND SPOKE TO THE PATIENT A FEW MINUTES AGO AND EXPLAINED THAT THE DISCOMFORT IS NORMAL AND EXPECTED. VITALS REMAIN STABLE. POWERGLIDE DRESSING CHANGE PER HOSPITAL PROTOCOL. PATIENT TO START ON CLINIMIX TONIGHT JUST TO BRIDGE HER TO STARTING TUBE FEEDS VIA PEG TUBE TOMORROW. PATIENT RESTING IN BED AT THIS TIME. VISITOR AT BEDSIDE. CALL LIGHT IN REACH.
--- NOTE | 2021-03-04 03:14 | NUR ---
SHIFT SUMMARY PATIENT HAD NO ACUTE CHANGES OBSERVED. AXOX 3 AND TWO ASSIST TO BSC. PEG TUBE PLACED ON DAY SHIFT. REPORTED PEG TUBE SITE SORE FROM PLACEMENT. NPO AND CLINIMIX INFUSING AT 70mL/HR. POWERGLIDE LATISHA INTACT. VSS/AFEBRILE. DENIES SOB AND N/V. COOPERATIVE WITH CARE. CALL LIGHT IN REACH. BED IN LOWEST POSITION. WILL CONTINUE TO MONITOR UNTIL DAY SHIFT NURSE ASSUMES CARE.
[2021-03-04 05:14] LABS: BASOPHILS ABSOLUTE AUTO 0.01 K/mm3 (0.00-0.23); BASOPHILS PERCENT AUTO 0 % (0-2); EOSINOPHILS PERCENT AUTO 0 % (0-6); Hematocrit 28.5 % (33.0-51.0); Hemoglobin 8.6 g/dL (11.5-16.0); IMMATURE GRAN ABSOLUTE AUTO 0.18 K/mm3 (0.00-0.10); IMMATURE GRAN PERCENT AUTO 1 % (0-1); LYMPHOCYTES ABSOLUTE AUTO 0.55 K/mm3 (0.84-5.20); LYMPHOCYTES PERCENT AUTO 4 % (21-46); MONOCYTES ABSOLUTE AUTO 0.72 K/mm3 (0.16-1.47); MONOCYTES PERCENT AUTO 5 % (4-13); Mean Corpuscular HGB 23.7 pg (26.0-34.0); Mean Corpuscular HGB Conc 30.2 g/dL (31.5-36.5); Mean Corpuscular Volume 79 fL (80-100); Mean Platelet Volume 9.1 fL (9.1-12.4); NEUTROPHILS ABSOLUTE AUTO 13.44 K/mm3 (1.96-9.15); NEUTROPHILS PERCENT AUTO 90 % (41-73); Platelet Count 834 K/mm3 (150-400); RDW Coefficient Variation 21.3 % (11.7-14.2); RDW Standard Deviation 60.6 fL (35.1-46.3); Red Blood Cell Count 3.63 M/mm3 (3.80-5.20)
[2021-03-04 05:30] LABS: Anion Gap 6 mmol/L (6-16); Blood Urea Nitrogen 33 mg/dL (8-24); Bun/Creatinine Ratio 43.3 (12.0-20.0); CO2, Blood 23 mmol/L (21-32); Calcium, Blood 8.1 mg/dL (8.5-10.1); Chloride, Blood 106 mmol/L (98-108); Creatinine, Blood 0.76 mg/dL (0.40-1.00); Glomerular Filtration Rate >60 (60-); Glucose, Blood 113 mg/dL (70-99); Potassium, Blood 4.2 mmol/L (3.5-5.5); Sodium, Blood 135 mmol/L (136-145)
--- NOTE | 2021-03-04 12:55 | NUR ---
TUBE FEEDS STARTED PER ORDERS. KANGAROO PUMP IN USE WITH H2O FLUSH Q4 HOURS. TUBE FEED TO BE TITRATED FOLLOWS: 30ML HR X 2 HRS, 60ML HR X 4 HRS AND 120MLS HR X 9.5 HRS. RESIDUALS TO BE DONE Q4 HRS
--- NOTE | 2021-03-04 18:17 | NUR ---
TUBE FEED STARTED THIS AFTERNOON, PT TOLERATING WELL THIS TIME. RELATES THAT TUBE INSERTION SITE IS SORE BUT NO ACUTE PAIN. SHE REMAINS VERY WEAK, 2 ASSIST TO BSC, AND IS ON BOARD WITH THE PLAN TO DISCHARGE TO REHAB TO WORK ON HER STRENGTH AND THEN RETURN TO [facility]. NO ACUTE CHANGES NOTED THIS SHIFT, WILL CONTINUE TO MONITOR AND REPORT TO CHEYENNE LÓPEZ
--- NOTE | 2021-03-05 03:39 | NUR ---
SHIFT SUMMARY PATIENT HAD NO ACUTE CHANGES OBSERVED. AXOX 3 AND TWO ASSIST TO BSC. NPO. CYCLIC TUBE FEEDING THIS SHIFT ENDED 02:30; WAS STARTED ON DAY SHIFT. PATIENT REPORTED ABDOMINAL DISCOMFORT AFTER FEEDING RATE INCREASED TO 120 mL/HR. PATIENT REPOSITIONED FROM LEANING POSITION AND DISCOMFORT RESOLVED. TUBE FEEDING RESIDUAL 260 mL WITH A GOAL OF <250mL. CBG Q6 CHECK: 95. POWERGLIDE LATISHA INTACT. VSS/AFEBRILE. DENIES PAIN, SOB, AND N/V. COOPERATIVE WITH CARE. CALL LIGHT IN REACH. BED IN LOWEST POSITION. WILL CONTINUE TO MONITOR UNTIL DAY SHIFT NURSE ASSUMES CARE.
[2021-03-05 05:34] LABS: Anion Gap 6 mmol/L (6-16); Blood Urea Nitrogen 31 mg/dL (8-24); Bun/Creatinine Ratio 35.4 (12.0-20.0); CO2, Blood 24 mmol/L (21-32); Calcium, Blood 8.2 mg/dL (8.5-10.1); Chloride, Blood 105 mmol/L (98-108); Creatinine, Blood 0.88 mg/dL (0.40-1.00); Glomerular Filtration Rate >60 (60-); Glucose, Blood 97 mg/dL (70-99); Phosphorus, Blood 2.2 mg/dL (2.5-4.9); Potassium, Blood 4.1 mmol/L (3.5-5.5); Sodium, Blood 135 mmol/L (136-145)
--- NOTE | 2021-03-05 10:00 | NUR ---
TUBE FEEDING BOLUS TUBE FEEDS BEGUN AT 1000 THIS MORNING, RESIDUAL CHECKED (40CC) AND RETURNED. 30CC FLUSH OF H2O BEFORE AND AFTER FEEDING 120 CC JEVITY BY GRAVITY. PT APPEARED TO TOLERATE WELL, DENIED PAIN OR DISCOMFORT. WILL MONITOR
--- NOTE | 2021-03-06 04:43 | NUR ---
SHIFT SUMMARY ASSUMED CARE OF PT AT 1900. PT IS A/OX4. HEART SOUDNS REGULAR, LUNG SOUNDS CLEAR. PT HAS PEG TUBE PLACED, BANDAGES C/D/I. PT HAD 0 RESIDUAL VOLUME WITH FEEDING. PT WAS CONTINENT T/O THE NIGHT. PT WAS A 2P FWW TO [facility]. PT ALSO USED BEDPAN. NO ACUTE EVENTS. CALL LIGHT IN REACH, BED IN LOWEST POSTION.
[2021-03-06 05:29] LABS: Anion Gap 4 mmol/L (6-16); Blood Urea Nitrogen 26 mg/dL (8-24); Bun/Creatinine Ratio 31.4 (12.0-20.0); CO2, Blood 26 mmol/L (21-32); Calcium, Blood 7.7 mg/dL (8.5-10.1); Chloride, Blood 104 mmol/L (98-108); Creatinine, Blood 0.83 mg/dL (0.40-1.00); Glomerular Filtration Rate >60 (60-); Glucose, Blood 92 mg/dL (70-99); Magnesium, Blood 2.1 mg/dL (1.6-2.4); Phosphorus, Blood 2.2 mg/dL (2.5-4.9); Potassium, Blood 4.2 mmol/L (3.5-5.5); Sodium, Blood 134 mmol/L (136-145)
--- NOTE | 2021-03-06 16:15 | NUR ---
SHIFT SUMMARY PATIENT DENIES PAIN, NAUSEA, AND SHORTNESS OF BREATH. PATIENT UP ONE ASSIST TO BSC/CHAIR. UP IN CHAIR MOST OF SHIFT. TOLERATING BOLUS FEEDS WELL. SON VISITED IN AFTERNOON. PLEASANT AND COOPERATIVE WITH CARE. TENTATIVE SNF DISCHARGE AROUND MONDAY.
--- NOTE | 2021-03-07 04:20 | NUR ---
SHIFT SUMMARY ASSUMED CARE OF PT AT 1900. PT IS A/OX4. HEART SOUNDS REGULAR, LUNG SOUNDS CLEAR. PT HAS PEGTUBE DRAINING WELL. THERE WAS 70ML OF RESIDUAL BEFORE HYDRATION THIS EVENING. PT C/O HAVING LOOSE STOOLS. PT BUTTOCKS IS RED DUE TO THIS. NO ACUTE EVENTS, PT SLEPT T/O THE NIGHT. CALL LIGHT IN REACH, BED IN LOWEST POSTION.
--- NOTE | 2021-03-07 10:00 | NUR ---
STUDENT ASSESSMENT REVIEW I HAVE REVIEWED THE STUDENT'S ASSESSMENT, CONDUCTED MY OWN ASSESSMENT, AND I AGREE WITH THE STUDENT'S FINDINGS.
--- NOTE | 2021-03-07 18:39 | NUR ---
Shift Summary, The patient was A/OX4 to person, place, time and event. The patient is pleasent and complaint with care. She is a 1 prsn assist with FWW and she uses the BSC. She has had multiple loose BMs this shift. She did not recieve 1800 tube feeding due to 250ml residual. Patient has been up to chair most of the day and there has been no acute changes this shift.
--- NOTE | 2021-03-08 04:19 | NUR ---
SHIFT SUMMARY ASSUMED CARE OF PT AT 1900. PT IS A/OX4. HEART SOUNDS REGULAR, LUNG SOUNDS CLEAR. PT HAD 40 RESIDUAL BEFORE BOLUS HYDRATION. PT STATES THAT SHE FEELS FULL. ABD IS SOFT. PT STILL C/O DIARRHEA. PT WAS CONTINENT TO THE BSC WITH 1P ASSIST. NO ACUTE EVENTS, PT SLEPT T/O THE NIGHT. CALL LIGHT IN REACH, BED IN LOWEST POSITON.
[2021-03-08] MEDS ORDERED: Catapres-Tts 21 EACH TOP (14:29)
[2021-03-08] MEDS ORDERED: ASPI81CH PT (14:29)
[2021-03-08] MEDS ORDERED: FAMO20 PT (14:30)
[2021-03-08 14:35] LABS: SARS-Cov-2 (COVID-19) PCR, MMC NEGATIVE (NEGATIVE)
--- NOTE | 2021-03-08 14:57 | NUR ---
CALLED REPORT TO H[facility] AT [facility] AT THIS TIME.
--- NOTE | 2021-03-08 15:18 | NUR ---
[facility] SON PRESENT TO TAKE BELONGINGS WITH HIM. PICKED UP BY TRANSPORT AT 15:10.
== END 2021-03-08 15:10 | DRG 871 ==
LOC: ER 14:06 → ICUE 16:52 → PCU 16:52 → MEDS 16:52 → PCU 19:22 → ICUE 02-15 17:44 → MEDS 02-18 18:34
PROVIDERS: Emergency Medicine; Internal Medicine; Internal Medicine Gastroenterology; Internal Medicine Pulmonary Disease; Nurse Practitioner Acute Care; ADMIT Internal Medicine
PROC: 30233N1 Transfusion of Nonautologous Red Blood Cells into Peripheral Vein, Percutaneous Approach (ICD-10-PCS; 2021-02-13)
PROC: 0W3P8ZZ Control Bleeding in Gastrointestinal Tract, Via Natural or Artificial Opening Endoscopic (ICD-10-PCS; 2021-02-18)
PROC: 0DC68ZZ Extirpation of Matter from Stomach, Via Natural or Artificial Opening Endoscopic (ICD-10-PCS; principal; 2021-02-18 13:00)
PROC: 0DB98ZX Excision of Duodenum, Via Natural or Artificial Opening Endoscopic, Diagnostic (ICD-10-PCS; 2021-02-18 13:00)
PROC: 0DH63UZ Insertion of Feeding Device into Stomach, Percutaneous Approach (ICD-10-PCS; 2021-03-03)
PROC: 0DB68ZX Excision of Stomach, Via Natural or Artificial Opening Endoscopic, Diagnostic (ICD-10-PCS; 2021-03-03)
DX: A41.51 Sepsis due to Escherichia coli [E. coli] (principal); K31.811 Angiodysplasia of stomach and duodenum with bleeding; J96.01 Acute respiratory failure with hypoxia; J69.0 Pneumonitis due to inhalation of food and vomit; K55.029 Acute infarction of small intestine, extent unspecified; R65.21 Severe sepsis with septic shock; K22.11 Ulcer of esophagus with bleeding; J15.5 Pneumonia due to Escherichia coli; D62 Acute posthemorrhagic anemia; N17.9 Acute kidney failure, unspecified; K63.3 Ulcer of intestine; R65.20 Severe sepsis without septic shock; Z66 Do not resuscitate; Z20.822 Contact with and (suspected) exposure to COVID-19; N18.30 Chronic kidney disease, stage 3 unspecified; K12.0 Recurrent oral aphthae; K21.9 Gastro-esophageal reflux disease without esophagitis; E78.5 Hyperlipidemia, unspecified; Z90.49 Acquired absence of other specified parts of digestive tract; Z90.710 Acquired absence of both cervix and uterus; Z79.82 Long term (current) use of aspirin; Z79.899 Other long term (current) drug therapy; Z88.2 Allergy status to sulfonamides; R47.81 Slurred speech; Z86.73 Personal history of transient ischemic attack (TIA), and cerebral infarction without residual deficits; K44.9 Diaphragmatic hernia without obstruction or gangrene; G47.00 Insomnia, unspecified; G62.9 Polyneuropathy, unspecified; K13.79 Other lesions of oral mucosa; R13.12 Dysphagia, oropharyngeal phase; I12.9 Hypertensive chronic kidney disease with stage 1 through stage 4 chronic kidney disease, or unspecified chronic kidney disease; Z79.1 Long term (current) use of non-steroidal anti-inflammatories (NSAID); T50.905A Adverse effect of unspecified drugs, medicaments and biological substances, initial encounter
CPT/HCPCS: 0241U; 36415; 36430; 36600; 51702; 70450; 71045; 71046; 71260; 74230; 80048; 80053; 81001; 82272; 82607; 82728; 82746; 82803; 82947; 83540; 83550; 83735; 84100; 84145; 84439; 84478; 84484; 85014; 85018; 85025; 85610; 85730; 86850; 86900; 86901; 86923; 87040; 87070; 87077; 87086; 87186; 87205; 87493; 88305; 88342; 92526; 92610; 92611; 93005; 93010; 93306; 94640; 94660; 94667; 94668; 94760; 94762; 97110; 97110-CQ; 97112; 97116; 97162; 97166; 97530; 97530-CQ; 97535; 99285-25; A9270; C1751; C9113; J0133; J0690; J0696; J1450; J2060; J2405; J2543; J2704; J2765; J2920; J3370; J3480; J7030; J7050; J7120; P9016; Q9967; U0004

== ENCOUNTER → 2021-03-10 | Outpatient (CLI) | payer MEDICARE ==
[~2021-03-10] MED LIST changes: +ACET325UDC PT; +ACETAMINOP160 MG/55 PT; +ASPI81CH PT; +Catapres-Tts 21 EACH TOP; +FAMO20 PT; +LISI5 PT; +LOVASTATIN20 MG PT; +MYRBETRIQ25 MG PT; +TRAZ50 PT
[2021-03-10 12:41] LABS: BASOPHILS ABSOLUTE AUTO 0.03 K/mm3 (0.00-0.23); BASOPHILS PERCENT AUTO 0 % (0-2); EOSINOPHILS ABSOLUTE AUTO 0.35 K/mm3 (0.00-0.68); EOSINOPHILS PERCENT AUTO 4 % (0-6); Hematocrit 30.1 % (33.0-51.0); Hemoglobin 9.1 g/dL (11.5-16.0); IMMATURE GRAN ABSOLUTE AUTO 0.11 K/mm3 (0.00-0.10); IMMATURE GRAN PERCENT AUTO 1 % (0-1); LYMPHOCYTES ABSOLUTE AUTO 1.01 K/mm3 (0.84-5.20); LYMPHOCYTES PERCENT AUTO 12 % (21-46); MONOCYTES PERCENT AUTO 10 % (4-13); Mean Corpuscular HGB 24.2 pg (26.0-34.0); Mean Corpuscular HGB Conc 30.2 g/dL (31.5-36.5); Mean Corpuscular Volume 80 fL (80-100); Mean Platelet Volume 9.9 fL (9.1-12.4); NEUTROPHILS ABSOLUTE AUTO 6.01 K/mm3 (1.96-9.15); NEUTROPHILS PERCENT AUTO 72 % (41-73); Platelet Count 715 K/mm3 (150-400); RDW Coefficient Variation 23.2 % (11.7-14.2); RDW Standard Deviation 67.1 fL (35.1-46.3); Red Blood Cell Count 3.76 M/mm3 (3.80-5.20); White Blood Cell Count 8.31 K/mm3 (4.00-11.30)
[2021-03-10 12:54] LABS: Anion Gap 3 mmol/L (6-16); Blood Urea Nitrogen 17 mg/dL (8-24); Bun/Creatinine Ratio 19.5 (12.0-20.0); CO2, Blood 28 mmol/L (21-32); Calcium, Blood 8.5 mg/dL (8.5-10.1); Chloride, Blood 103 mmol/L (98-108); Creatinine, Blood 0.87 mg/dL (0.40-1.00); Glomerular Filtration Rate >60 (60-); Glucose, Blood 109 mg/dL (70-99); Potassium, Blood 4.7 mmol/L (3.5-5.5); Sodium, Blood 134 mmol/L (136-145)
== END | disposition home or self-care (01) ==
LOC: LAB SHORT 12:30 → LAB 12:30
PROVIDERS: Internal Medicine
DX: I69.391 Dysphagia following cerebral infarction (principal); N17.8 Other acute kidney failure; E78.5 Hyperlipidemia, unspecified
CPT/HCPCS: 80048; 85025

== ENCOUNTER 2021-04-08 13:33 | Emergency (ER) | payer MEDICARE ==
[~2021-04-08] VITALS: Ht 157.5 cm; Wt 63.5 kg
[~2021-04-08 13:33] MED LIST changes: -ACET325UDC PT; -ACETAMINOP160 MG/55 PT; -LISI5 PT; -LOVASTATIN20 MG PT; -MYRBETRIQ25 MG PT; -TRAZ50 PT
== END 2021-04-08 16:50 | disposition home or self-care (01) ==
LOC: ER 13:33
DX: Z43.1 Encounter for attention to gastrostomy (principal); K21.9 Gastro-esophageal reflux disease without esophagitis; E78.5 Hyperlipidemia, unspecified; Z88.2 Allergy status to sulfonamides; Z79.82 Long term (current) use of aspirin; Z79.899 Other long term (current) drug therapy
CPT/HCPCS: 74018; 99283-25

== ENCOUNTER 2021-04-15 11:32 | Observation (INO) | payer MEDICARE ==
[~2021-04-15] VITALS: Ht 157.5 cm; Wt 61.5 kg
[2021-04-15 15:50] LABS: BASOPHILS ABSOLUTE AUTO 0.09 K/mm3 (0.00-0.23); BASOPHILS PERCENT AUTO 1 % (0-2); EOSINOPHILS ABSOLUTE AUTO 0.42 K/mm3 (0.00-0.68); EOSINOPHILS PERCENT AUTO 4 % (0-6); Hematocrit 37.7 % (33.0-51.0); Hemoglobin 11.2 g/dL (11.5-16.0); IMMATURE GRAN ABSOLUTE AUTO 0.06 K/mm3 (0.00-0.10); IMMATURE GRAN PERCENT AUTO 1 % (0-1); LYMPHOCYTES ABSOLUTE AUTO 1.54 K/mm3 (0.84-5.20); LYMPHOCYTES PERCENT AUTO 13 % (21-46); MONOCYTES ABSOLUTE AUTO 0.86 K/mm3 (0.16-1.47); MONOCYTES PERCENT AUTO 7 % (4-13); Mean Corpuscular HGB 23.7 pg (26.0-34.0); Mean Corpuscular HGB Conc 29.7 g/dL (31.5-36.5); Mean Corpuscular Volume 80 fL (80-100); Mean Platelet Volume 9.3 fL (9.1-12.4); NEUTROPHILS ABSOLUTE AUTO 8.63 K/mm3 (1.96-9.15); NEUTROPHILS PERCENT AUTO 74 % (41-73); Platelet Count 891 K/mm3 (150-400); RDW Coefficient Variation 19.2 % (11.7-14.2); RDW Standard Deviation 55.8 fL (35.1-46.3); Red Blood Cell Count 4.73 M/mm3 (3.80-5.20)
[2021-04-15 16:15] LABS: Alanine Aminotransfer (ALT/SGP 13 U/L (12-78); Albumin/Globulin Ratio 0.6 (0.8-1.8); Alk Phos 109 U/L (50-136); Anion Gap 4 mmol/L (6-16); Aspartate Aminotrans (AST/SGOT 15 U/L (12-37); Bilirubin, Total 0.7 mg/dL (0.1-1.0); Blood Urea Nitrogen 28 mg/dL (8-24); Bun/Creatinine Ratio 31.2 (12.0-20.0); CO2, Blood 28 mmol/L (21-32); Calcium, Blood 9.5 mg/dL (8.5-10.1); Chloride, Blood 106 mmol/L (98-108); Globulin, Blood 5.1 g/dL (2.2-4.0); Glomerular Filtration Rate >60 (60-); Glucose, Blood 83 mg/dL (70-99); Potassium, Blood 3.8 mmol/L (3.5-5.5); Sodium, Blood 138 mmol/L (136-145); Total Protein, Blood 8.1 g/dL (6.4-8.2)
[2021-04-15] MEDS ORDERED: LISI5 PT (16:43)
[2021-04-15] MEDS ORDERED: MYRBETRIQ25 MG PT (16:43)
[2021-04-15] MEDS ORDERED: TRAZ50 PT (16:43)
[2021-04-15] MEDS ORDERED: LOVASTATIN20 MG PT (16:43)
[2021-04-15 17:46] LABS: International Normalized Ratio 1.04; Prothrombin Time Results 11.2 Sec (9.7-11.5)
--- NOTE | 2021-04-15 19:31 | NUR ---
ADMIT NOTE HANDOFF RECEIVED FROM COMPUTER ARCHITECT SACHI. PT TO ROOM VIA WHEELCHAIR. AWAITING PHARMACY TO BEGIN NS @ 75 ML/HR INFUSION. CALL BUTTON WITHIN REACH. PT ORIENTED TO UNIT.
--- NOTE | 2021-04-15 21:35 | NUR ---
CALLED HOSPITALIST PT INFORMED MY CHARGE AND ME THAT SHE WOULD LIKE TO BE A FULL CODE. I CALLED HOSPITALIST AND INFORMED HER OF THIS. CODE STATUS IS NOW FULL CODE
--- NOTE | 2021-04-16 04:45 | NUR ---
SHIFT SUMMARY ADMITTED FROM ER THIS SHIFT FOR PEG TUBE PLACEMENT. FULL CODE. PLAN IS FOR CONSULT [facility] TO INSTALL A PEG TUBE. SHE IS WHEELCHAIR BOUND AT BASELINE. SHE LIVES AT [facility]. SHE HAS DYSPHAGIA. NS INFUSING @ 75 ML/HR. SHE IS NPO
[2021-04-16 05:10] LABS: BASOPHILS ABSOLUTE AUTO 0.06 K/mm3 (0.00-0.23); BASOPHILS PERCENT AUTO 1 % (0-2); EOSINOPHILS ABSOLUTE AUTO 0.58 K/mm3 (0.00-0.68); EOSINOPHILS PERCENT AUTO 8 % (0-6); Hematocrit 33.7 % (33.0-51.0); Hemoglobin 9.9 g/dL (11.5-16.0); IMMATURE GRAN ABSOLUTE AUTO 0.03 K/mm3 (0.00-0.10); IMMATURE GRAN PERCENT AUTO 0 % (0-1); LYMPHOCYTES ABSOLUTE AUTO 1.11 K/mm3 (0.84-5.20); LYMPHOCYTES PERCENT AUTO 15 % (21-46); MONOCYTES ABSOLUTE AUTO 0.68 K/mm3 (0.16-1.47); MONOCYTES PERCENT AUTO 10 % (4-13); Mean Corpuscular HGB 23.3 pg (26.0-34.0); Mean Corpuscular HGB Conc 29.4 g/dL (31.5-36.5); Mean Corpuscular Volume 80 fL (80-100); Mean Platelet Volume 9.4 fL (9.1-12.4); NEUTROPHILS ABSOLUTE AUTO 4.73 K/mm3 (1.96-9.15); NEUTROPHILS PERCENT AUTO 66 % (41-73); Platelet Count 757 K/mm3 (150-400); RDW Standard Deviation 55.2 fL (35.1-46.3); Red Blood Cell Count 4.24 M/mm3 (3.80-5.20); White Blood Cell Count 7.19 K/mm3 (4.00-11.30)
[2021-04-16 06:08] LABS: Anion Gap 8 mmol/L (6-16); Blood Urea Nitrogen 25 mg/dL (8-24); Bun/Creatinine Ratio 29.7 (12.0-20.0); CO2, Blood 23 mmol/L (21-32); Calcium, Blood 8.7 mg/dL (8.5-10.1); Chloride, Blood 108 mmol/L (98-108); Creatinine, Blood 0.84 mg/dL (0.40-1.00); Glomerular Filtration Rate >60 (60-); Glucose, Blood 62 mg/dL (70-99); Potassium, Blood 3.7 mmol/L (3.5-5.5); Sodium, Blood 139 mmol/L (136-145)
--- NOTE | 2021-04-16 17:20 | NUR ---
AT 1610 PT HAD G TUBE FEED VIA GRAVITY WITH JEVITY 1.5 JENNY ORDERED. DURING FEEDING, PT C/O INCREASING PAIN TO HER ABD RUQ, PT VERBALIZED THAT PAIN IS PRESENT ONLY DURING TUBE FEED. DENIES N&V, DENIES ANY OTHER DISCOMFORT. TUBE FEEING STOPPED, PT ABLE TO TOLERATE 75% OF 8 FL OZ CARTON OF THE JEVITY 1.5. NOTIFIED DR. SMART VIA PHONE CALL. T.O NOTED. PT CALM AND COMFORTABLE AT THIS TIME. BED AT LOWEST POSITION. CALL LIGHT WITHIN REACH.
--- NOTE | 2021-04-16 19:18 | NUR ---
SHIFT SUMMARY PT A&OX4, ABLE TO MAKE NEEDS KNOWN, PLEASANT AND COOPERATIVE TO CARE. NEW G TUBE IN PLACE TO RUQ ABD, PT MEDICATED FOR PAIN TO AA. G TUBE IS PATENT, DRESSING IN PLACE TO AA. PT DENIES ANY N&V. PT W/C BOUND, 2P MAX ASSIST TO BSC. PT MEDICATED FOR PAIN PER EMAR. NO C/O CP OR SOB. PT CALM AND RESTED IN BED AT THIS TIME. BED AT LOWEST POSITION. CALL LIGHT WITHIN REACH.
--- NOTE | 2021-04-17 05:03 | NUR ---
SHIFT SUMMARY PT A/O X3; PLEASANT AND COOPERATIVE WITH CARE. POD #1 FOR PEG TUBE REPLACEMENT. C/O INCREASING PAIN IN THE PEG TUBE SITE AND TREATED PER EMR. DRESSING CDI. PEG TUBE PATENT. 1 ASSIST TO THE BSC. PT GETS UP TO VOID OFTEN BUT HAS NOT HAD A BM OR ANY FLATUS. VSS. RESTING COMFORTABLY IN BED WITH HER CALL LIGHT IN REACH.
[2021-04-17] MEDS ORDERED: ACETAMINOP160 MG/55 PT (09:27)
--- NOTE | 2021-04-17 18:02 | NUR ---
PT IS RESTING IN BED AND MAKES NO C/O PAIN AT HER PEG TUBE SITE AT THIS TIME. PT HAC ACTIVE DC ORDER IN PLACE, HOWEVER [facility] COULD NOT TAKE HER BACK ON A MONDAY. PT IV HAS BEEN DC'D AND NO IV ACCESS ORDER HAS BEEN PLACED PER MD. PT HAVING SOFT STOOLS AND TOLERAING FEEDS WELL, ALTHOUGH NOT ABLE TO TAKE FULL AMOUNT EACH TIME. PT REMAINS ALERT AND ORIENTED AND USES CALL LIGHT TO MAKE NEEDS KNOWN. BED IN LOW POSITION AND CALL LIGHT WITHIN REACH. STAFF WILL CONT. TO MONITOR.
--- NOTE | 2021-04-17 22:31 | NUR ---
REQUESTED AND RECEIVED ANALGESIC FOR ABD DISCOMFORT. PEG TUBE IN PLACE. ASSISTED TO BEDSIDE COMMODE A FEW TIMES. CALL LIGHT IN REACH
--- NOTE | 2021-04-18 04:46 | NUR ---
POWER LINE LINEMAN SUMMARY AWAKE AND UP WITH ASSIST TO BEDSIDE COMMODE OFTEN THIS SHIFT AFTER HS. VOIDED SOME 100 TO 200 ML EACH TIME. REQUESTED AND RECEIVED ANALGESIC ONCE FOR DISCOMFORT AT TUBE SITE, DRESSING INTACT. RESTING QUIETLY AT THIS TIME. CALL LIGHT IN REACH
[2021-04-18] MEDS ORDERED: ACET325UDC PT (07:57)
--- NOTE | 2021-04-18 11:03 | NUR ---
[place]... PT WAS DISHCARGED ALERT AND ORIENTENTED X4 WITH FAMILY AND BELONGINGS AT SIDE VIA WHEELCHAIR. PT TOLERATED TUBE FEEDING THIS MORNING AND HAS BEEN ABLE TO PASS GAS AND STOOL WITHOUT COMPLAINTS. PT DENIES PAIN AND N/V. PT WAS TAKEN TO [facility] BY SON. DIOMEDES CALLED INTO [facility] ON [address].
== END 2021-04-18 09:04 | disposition home or self-care (01) ==
LOC: ER 11:32 → ERHOLD 11:33 → MEDS 11:33 → ENPENDDIS 04-17 14:47 → MEDS 04-18 09:04
PROVIDERS: Physician Assistant; ADMIT Internal Medicine
DX: K94.23 Gastrostomy malfunction (principal); E43 Unspecified severe protein-calorie malnutrition; I10 Essential (primary) hypertension; E78.5 Hyperlipidemia, unspecified; N32.81 Overactive bladder; Z66 Do not resuscitate; R53.81 Other malaise; Z86.73 Personal history of transient ischemic attack (TIA), and cerebral infarction without residual deficits; Z99.3 Dependence on wheelchair; Z88.2 Allergy status to sulfonamides; Z79.84 Long term (current) use of oral hypoglycemic drugs; Z79.899 Other long term (current) drug therapy
CPT/HCPCS: 36415; 43762; 49440; 74176; 80048; 80053; 85025; 85610; 96374; 96375; 96376; 99152; 99153; 99284-25; A9270; C1769; C1887; G0378; J0461; J2250; J3010; J7030; Q9967

== ENCOUNTER → 2021-06-18 | Outpatient (CLI) | payer MEDICARE ==
[~2021-06-18] MED LIST changes: +ACET325UDC PT; +ACETAMINOP160 MG/55 PT; +LISI5 PT; +LOVASTATIN20 MG PT; +MYRBETRIQ25 MG PT; +TRAZ50 PT
== END | disposition home or self-care (01) ==
LOC: LAB 13:14 → LAB SHORT 13:14
PROVIDERS: Physician Assistant
DX: E03.9 Hypothyroidism, unspecified (principal)
CPT/HCPCS: 84436; 84443

== ENCOUNTER 2021-07-20 10:14 | Emergency (ER) | payer MEDICARE ==
[~2021-07-20] VITALS: Ht 157.5 cm; Wt 59.0 kg
[2021-07-21] MEDS ORDERED: FAMO20 PO (22:38)
== END 2021-07-20 13:45 | disposition home or self-care (01) ==
LOC: ER 10:14
DX: K94.23 Gastrostomy malfunction (principal); I10 Essential (primary) hypertension; E78.5 Hyperlipidemia, unspecified; Z88.2 Allergy status to sulfonamides; Z79.899 Other long term (current) drug therapy; Z79.82 Long term (current) use of aspirin; Z86.73 Personal history of transient ischemic attack (TIA), and cerebral infarction without residual deficits
CPT/HCPCS: 43762; 49465; 99282-25; Q9963

== ENCOUNTER 2021-07-21 22:13 | Observation (INO) | payer MEDICARE ==
[~2021-07-21] VITALS: Ht 157.5 cm; Wt 59.4 kg
[2021-07-21] MEDS ORDERED: FAMO20 PO (22:38)
--- NOTE | 2021-07-22 06:08 | NUR ---
PATIENT IS ASLEEP LYING IN BED. RR EVEN AND UNLABORED, NO EVIDENCE OF PAIN OR RESP DISTRESS. PT HAS BEEN NPO PENDING SX.BED IN LOW POSITION AND CALL LIGHT WITHIN REACH.
[2021-07-22 10:22] LABS: SARS-Cov-2 (COVID-19) PCR, MMC NEGATIVE (NEGATIVE)
--- NOTE | 2021-07-22 16:21 | NUR ---
PT DISCHARGED AT 1600. PT HAD PEG TUBE REPLACED EARLIER TODAY AND WAS RECOVERING WELL. PT DID REPORT PAIN IN ABD AND NAUSEA AND DR PENDLETON ADDED MEDICATION TO EMAR. PT WAS A ONE PERSON TRANSFER TO COMMODE OR CHAIR. PT DOING WELL AND HAD NO SIGNS OF DISTRESS NOTED. PT AND SON HAD INSTRUCTIONS REVIEWED AND EDUCATIONAL MATERIAL SENT WITH THEM. PT ESCORTED OUT VIA WHEELCHAIR TO N ENTRANCE.
== END 2021-07-22 16:25 | disposition home or self-care (01) ==
LOC: ER 22:13 → MEDS 22:14
PROVIDERS: Surgery; ADMIT Family Medicine
PROC: 0DH63UZ Insertion of Feeding Device into Stomach, Percutaneous Approach (ICD-10-PCS; principal; 2021-07-22 11:00)
DX: K94.23 Gastrostomy malfunction (principal); I69.991 Dysphagia following unspecified cerebrovascular disease; R13.10 Dysphagia, unspecified; I10 Essential (primary) hypertension; E78.5 Hyperlipidemia, unspecified; Y83.3 Surgical operation with formation of external stoma as the cause of abnormal reaction of the patient, or of later complication, without mention of misadventure at the time of the procedure; Z96.642 Presence of left artificial hip joint; Z79.82 Long term (current) use of aspirin; Z20.822 Contact with and (suspected) exposure to COVID-19
CPT/HCPCS: 43762; 99284-25; A9270; G0378; J0690; J1170; J2704; U0004

== ENCOUNTER → 2021-07-24 | Outpatient (CLI) | payer MEDICARE ==
[~2021-07-24] MED LIST changes: +FAMO20 PO
== END | disposition home or self-care (01) ==
LOC: LAB SHORT 13:45 → OLS 13:45
DX: N39.0 Urinary tract infection, site not specified (principal)
CPT/HCPCS: 87086

== ENCOUNTER → 2022-01-21 | Outpatient (CLI) | payer MEDICARE | LOC: LAB 18:56 → LAB SHORT 18:56 | DX: N39.0 Urinary tract infection, site not specified (principal) | CPT/HCPCS: 87077; 87086; 87186 ==

== ENCOUNTER → 2023-03-20 | Outpatient (CLI) | payer MEDICARE ==
[2023-03-20 16:00] LABS: Source, Urine Clean Catch
[2023-03-20 17:10] LABS: Appearance, Urine Cloudy (Clear); Bilirubin, Urine Neg (Neg); Blood, Urine 2+ (Neg); Color, Urine Yellow (P-Yellow); Glucose Qualitative, Urine Neg (Neg); Ketones, Urine Neg (Neg); Leukocyte Esterase, Urine 3+ (Neg); Nitrite, Urine Pos (Neg); Protein, Urine 2+ (Neg); Specific Gravity, Urine 1.015 (1.003-1.022); Urobilinogen, Urine NORM (Normal)
[2023-03-20 17:23] LABS: Bacteria Many /hpf; Squamous Epithelial Cells Few /hpf (Few); White Blood Cells, Urine TNTC /hpf (0-5)
== END | disposition home or self-care (01) ==
LOC: LAB SHORT 13:28 → LAB 13:28
PROVIDERS: Student in an Organized Health Care Education/Training Program
DX: N39.0 Urinary tract infection, site not specified (principal)
CPT/HCPCS: 81001; 87077; 87086; 87186

== ENCOUNTER → 2023-06-16 | Outpatient (CLI) | payer MEDICARE ==
[2023-06-16 12:48] LABS: BASOPHILS ABSOLUTE AUTO 0.06 K/mm3 (0.00-0.23); BASOPHILS PERCENT AUTO 1 % (0-2); EOSINOPHILS ABSOLUTE AUTO 0.25 K/mm3 (0.00-0.68); EOSINOPHILS PERCENT AUTO 5 % (0-6); Hematocrit 43.2 % (33.0-51.0); Hemoglobin 14.2 g/dL (11.5-16.0); IMMATURE GRAN ABSOLUTE AUTO 0.01 K/mm3 (0.00-0.10); IMMATURE GRAN PERCENT AUTO 0 % (0-1); LYMPHOCYTES PERCENT AUTO 24 % (21-46); MONOCYTES ABSOLUTE AUTO 0.51 K/mm3 (0.16-1.47); MONOCYTES PERCENT AUTO 9 % (4-13); Mean Corpuscular HGB 29.5 pg (26.0-34.0); Mean Corpuscular HGB Conc 32.9 g/dL (31.5-36.5); Mean Corpuscular Volume 90 fL (80-100); Mean Platelet Volume 9.8 fL (9.1-12.4); NEUTROPHILS ABSOLUTE AUTO 3.31 K/mm3 (1.96-9.15); NEUTROPHILS PERCENT AUTO 61 % (41-73); Platelet Count 558 K/mm3 (150-400); Red Blood Cell Count 4.82 M/mm3 (3.80-5.20); White Blood Cell Count 5.44 K/mm3 (4.00-11.30)
[2023-06-16 12:56] LABS: Bun/Creatinine Ratio 13.4 (12.0-20.0); Calcium, Blood 9.7 mg/dL (8.5-10.1); Creatinine, Blood 0.97 mg/dL (0.40-1.00); Potassium, Blood 4.5 mmol/L (3.5-5.5)
== END | disposition home or self-care (01) ==
LOC: LAB SHORT 11:28 → LAB 11:28
PROVIDERS: Internal Medicine
DX: R06.00 Dyspnea, unspecified (principal)
CPT/HCPCS: 80048; 83880; 85025

== ENCOUNTER → 2023-09-20 | Outpatient (CLI) | payer MEDICARE ==
[2023-09-20 18:46] LABS: Appearance, Urine Clear (Clear); Bilirubin, Urine Neg (Neg); Blood, Urine Neg (Neg); Color, Urine Amber (P-Yellow); Glucose Qualitative, Urine Neg (Neg); Ketones, Urine Neg (Neg); Leukocyte Esterase, Urine 1+ (Neg); Nitrite, Urine Neg (Neg); Protein, Urine 1+ (Neg); Urobilinogen, Urine NORM (Normal)
[2023-09-20 18:59] LABS: Bacteria Many /hpf; Red Blood Cells, Urine 0-2 /hpf (0-2); Squamous Epithelial Cells Few /hpf (Few)
== END | disposition home or self-care (01) ==
LOC: LAB SHORT 17:17 → LAB 17:17
PROVIDERS: Internal Medicine
DX: N39.0 Urinary tract infection, site not specified (principal)
CPT/HCPCS: 81001; 87077; 87086; 87186

== ENCOUNTER 2023-09-28 21:51 | Emergency (ER) | payer MEDICARE ==
[~2023-09-28] VITALS: Ht 157.5 cm; Wt 61.7 kg
[2023-09-28 21:54] VITALS: BP 150/76
== END 2023-09-28 23:45 | disposition left against medical advice (07) ==
LOC: ER 21:51
DX: Z53.21 Procedure and treatment not carried out due to patient leaving prior to being seen by health care provider (principal)
CPT/HCPCS: 73502

== ENCOUNTER → 2024-02-20 | Outpatient (CLI) | payer MEDICARE ==
[2024-02-20 12:08] LABS: BASOPHILS ABSOLUTE AUTO 0.05 K/mm3 (0.00-0.23); BASOPHILS PERCENT AUTO 1 % (0-2); EOSINOPHILS ABSOLUTE AUTO 0.38 K/mm3 (0.00-0.68); EOSINOPHILS PERCENT AUTO 7 % (0-6); Hematocrit 41.5 % (33.0-51.0); Hemoglobin 13.4 g/dL (11.5-16.0); IMMATURE GRAN ABSOLUTE AUTO 0.02 K/mm3 (0.00-0.10); IMMATURE GRAN PERCENT AUTO 0 % (0-1); LYMPHOCYTES ABSOLUTE AUTO 1.66 K/mm3 (0.84-5.20); LYMPHOCYTES PERCENT AUTO 29 % (21-46); MONOCYTES PERCENT AUTO 9 % (4-13); Mean Corpuscular HGB 29.1 pg (26.0-34.0); Mean Corpuscular HGB Conc 32.3 g/dL (31.5-36.5); Mean Corpuscular Volume 90 fL (80-100); Mean Platelet Volume 10.3 fL (9.1-12.4); NEUTROPHILS ABSOLUTE AUTO 3.16 K/mm3 (1.96-9.15); NEUTROPHILS PERCENT AUTO 55 % (41-73); Platelet Count 556 K/mm3 (150-400); RDW Coefficient Variation 13.6 % (11.7-14.2); RDW Standard Deviation 44.7 fL (35.1-46.3); White Blood Cell Count 5.77 K/mm3 (4.00-11.30)
[2024-02-20 12:23] LABS: Alanine Aminotransfer (ALT/SGP 15 U/L (12-78); Albumin, Blood 3.5 g/dL (3.4-5.0); Albumin/Globulin Ratio 0.9 (0.8-1.8); Alk Phos 123 U/L (50-136); Anion Gap 8 mmol/L (3-11); Aspartate Aminotrans (AST/SGOT 13 U/L (12-37); Bilirubin, Direct 0.1 mg/dL (0.0-0.3); Bilirubin, Indirect 0.5 mg/dL (0.1-0.7); Bilirubin, Total 0.6 mg/dL (0.1-1.0); Blood Urea Nitrogen 26 mg/dL (8-24); Bun/Creatinine Ratio 24.3 (12.0-20.0); CHOL/HDL RATIO 3.3; CO2, Blood 26 mmol/L (21-32); Chloride, Blood 108 mmol/L (98-108); Cholesterol 181 mg/dL (50-200); Creatinine, Blood 1.07 mg/dL (0.40-1.00); Free Thyroxine 1.06 ng/dL (0.70-1.60); Globulin, Blood 3.8 g/dL (2.2-4.0); Glomerular Filtration Rate 50 (60-); Glucose, Blood 89 mg/dL (70-99); HDL Cholesterol 55 mg/dL (>39); LDL/HDL RATIO 1.9; Low Density Lipoprotein Chol 106 mg/dL (0-110); Magnesium, Blood 2.2 mg/dL (1.6-2.4); Potassium, Blood 4.4 mmol/L (3.5-5.5); Sodium, Blood 138 mmol/L (136-145); Total Protein, Blood 7.3 g/dL (6.4-8.2); Triglycerides 100 mg/dL (30-160); Very Low Density Lipoprot Chol 20 mg/dL (6-32)
== END | disposition home or self-care (01) ==
LOC: LAB 07:50 → LAB SHORT 07:50
PROVIDERS: Internal Medicine
DX: I10 Essential (primary) hypertension (principal); E03.9 Hypothyroidism, unspecified; E78.5 Hyperlipidemia, unspecified; Z79.899 Other long term (current) drug therapy
CPT/HCPCS: 80048; 80061; 80076; 82607; 83735; 84439; 84443; 85025

== ENCOUNTER 2024-08-23 12:40 | Emergency (ER) | payer MEDICARE ==
[~2024-08-23] VITALS: Ht 152.4 cm; Wt 54.4 kg
[2024-08-23 12:44] VITALS: BP 134/83
[2024-08-23 15:32] LABS: Albumin, Blood 3.3 g/dL (3.4-5.0); Albumin/Globulin Ratio 0.8 (0.8-1.8); Bilirubin, Total 1.4 mg/dL (0.1-1.0); Bun/Creatinine Ratio 20.1 (12.0-20.0); Calcium, Blood 9.2 mg/dL (8.5-10.1); Creatinine, Blood 1.34 mg/dL (0.40-1.00); Globulin, Blood 4.3 g/dL (2.2-4.0); Potassium, Blood 3.8 mmol/L (3.5-5.5); Total Protein, Blood 7.6 g/dL (6.4-8.2)
[2024-08-23 15:38] LABS: BASOPHILS ABSOLUTE AUTO 0.04 K/mm3 (0.00-0.23); BASOPHILS PERCENT AUTO 0 % (0-2); EOSINOPHILS ABSOLUTE AUTO 0.01 K/mm3 (0.00-0.68); EOSINOPHILS PERCENT AUTO 0 % (0-6); Hematocrit 37.3 % (33.0-51.0); Hemoglobin 12.4 g/dL (11.5-16.0); IMMATURE GRAN ABSOLUTE AUTO 0.07 K/mm3 (0.00-0.10); IMMATURE GRAN PERCENT AUTO 1 % (0-1); LYMPHOCYTES ABSOLUTE AUTO 0.67 K/mm3 (0.84-5.20); LYMPHOCYTES PERCENT AUTO 6 % (21-46); MONOCYTES ABSOLUTE AUTO 1.19 K/mm3 (0.16-1.47); MONOCYTES PERCENT AUTO 10 % (4-13); Mean Corpuscular HGB 29.5 pg (26.0-34.0); Mean Corpuscular HGB Conc 33.2 g/dL (31.5-36.5); Mean Corpuscular Volume 89 fL (80-100); NEUTROPHILS PERCENT AUTO 84 % (41-73); RDW Coefficient Variation 13.7 % (11.7-14.2); RDW Standard Deviation 44.7 fL (35.1-46.3); White Blood Cell Count 12.18 K/mm3 (4.00-11.30)
[2024-08-23] MEDS ORDERED: Cephalexin Monohydrate 500 MG Cap PO ONE (18:00)
[2024-08-23] MEDS ORDERED: CEPH500 PO (18:03)
[2024-08-23 18:16] LABS: Source, Urine Clean Catch
[2024-08-23 18:21] LABS: Appearance, Urine Cloudy (Clear); Bilirubin, Urine Neg (Neg); Blood, Urine 3+ (Neg); Color, Urine Yellow (P-Yellow); Glucose Qualitative, Urine Neg (Neg); Ketones, Urine Neg (Neg); Leukocyte Esterase, Urine 3+ (Neg); Nitrite, Urine Pos (Neg); Protein, Urine 3+ (Neg); Specific Gravity, Urine 1.015 (1.003-1.022); Urobilinogen, Urine NORM (Normal)
[2024-08-23 18:29] LABS: White Blood Cells, Urine TNTC /hpf (0-5)
[2024-08-23 18:30] LABS: Bacteria Many /hpf; Mucus Light (0-Heavy); Red Blood Cells, Urine 0-2 /hpf (0-2); Squamous Epithelial Cells Few /hpf (Few); Transitional Epithelial Cells Rare /hpf (0-Rare)
== END 2024-08-23 18:36 | disposition home or self-care (01) ==
LOC: ER 12:40
PROVIDERS: Physician Assistant
DX: N39.0 Urinary tract infection, site not specified (principal); Z88.2 Allergy status to sulfonamides; Z79.899 Other long term (current) drug therapy; Z79.82 Long term (current) use of aspirin; I10 Essential (primary) hypertension; K21.9 Gastro-esophageal reflux disease without esophagitis
CPT/HCPCS: 80053; 81001; 85025; 87077; 87086; 87186; 99283

== ENCOUNTER → 2024-12-11 | Outpatient (CLI) | payer MEDICARE ==
[~2024-12-11] MED LIST changes: +CEPH500 PO
[2024-12-11 17:19] LABS: Appearance, Urine Cloudy (Clear); Bilirubin, Urine Neg (Neg); Blood, Urine 2+ (Neg); Glucose Qualitative, Urine Neg (Neg); Ketones, Urine Neg (Neg); Leukocyte Esterase, Urine 3+ (Neg); Nitrite, Urine Pos (Neg); Protein, Urine 2+ (Neg); Urobilinogen, Urine NORM (Normal)
[2024-12-11 18:49] LABS: Bacteria Many /hpf; Color, Urine Pale Yellow (P-Yellow); Red Blood Cells, Urine 0-2 /hpf (0-2); Squamous Epithelial Cells Rare /hpf (Few); White Blood Cells, Urine TNTC /hpf (0-5)
[2024-12-11 18:50] LABS: Transitional Epithelial Cells Rare /hpf (0-Rare)
== END ==
LOC: LAB 09:40 → LAB SHORT 09:40
PROVIDERS: Internal Medicine
DX: R30.0 Dysuria (principal)
CPT/HCPCS: 81001; 87077; 87086; 87186

== ENCOUNTER → 2025-01-02 | Outpatient (CLI) | payer MEDICARE ==
[2025-01-02 13:00] LABS: Source, Urine Clean Catch
[2025-01-02 15:40] LABS: Appearance, Urine Turbid (Clear); Bilirubin, Urine Neg (Neg); Blood, Urine 4+ (Neg); Glucose Qualitative, Urine Neg (Neg); Ketones, Urine Neg (Neg); Leukocyte Esterase, Urine 3+ (Neg); Nitrite, Urine Neg (Neg); Protein, Urine 3+ (Neg); Specific Gravity, Urine 1.015 (1.003-1.022); Urobilinogen, Urine NORM (Normal)
[2025-01-02 16:08] LABS: Color, Urine Pale Yellow (P-Yellow)
[2025-01-02 16:09] LABS: White Blood Cells, Urine TNTC /hpf (0-5)
[2025-01-02 16:10] LABS: Bacteria Many /hpf; Squamous Epithelial Cells Few /hpf (Few)
== END ==
LOC: LAB SHORT 12:59 → LAB 12:59
PROVIDERS: Internal Medicine
DX: N39.0 Urinary tract infection, site not specified (principal)
CPT/HCPCS: 81001; 87077; 87086; 87186

== ENCOUNTER 2025-02-19 02:03 | Day surgery (SDC) | payer MEDICARE ==
[2025-02-19] MEDS ORDERED: LOSA25 PO (10:51)
[2025-02-19] MEDS ORDERED: OMEP20ER PO (10:51)
[2025-02-19] MEDS ORDERED: MIRT15ST PO (10:52)
[2025-02-19] MEDS ORDERED: ACET500 PO (10:52)
[2025-02-19] MEDS ORDERED: ATOR10 PO (10:52)
[2025-02-19] MEDS ORDERED: CALCIUM 500 MG1 EAC9 PO (10:52)
[2025-02-19] MEDS ORDERED: [UNRECOGNIZED DRUG - CODE] PO (10:53)
[2025-02-19] MEDS ORDERED: DOCU100 PO (10:53)
[2025-02-19] MEDS ORDERED: IBUP200 PO (10:53)
[2025-02-19] MEDS ORDERED: GENTEAL TEARS S10 GM BOTHEYES (10:54)
[2025-02-19] MEDS ORDERED: NYAMYC1513 TOP (10:55)
--- NOTE | 2025-02-19 11:04 | NUR ---
BLADDER SCAN REPORT FAXED TO DR NORMAN
== END 2025-02-19 08:45 | disposition home or self-care (01) ==
LOC: ATC 02:03
DX: N39.0 Urinary tract infection, site not specified (principal); L57.0 Actinic keratosis; I12.9 Hypertensive chronic kidney disease with stage 1 through stage 4 chronic kidney disease, or unspecified chronic kidney disease; N18.31 Chronic kidney disease, stage 3a; E78.5 Hyperlipidemia, unspecified; N39.41 Urge incontinence; Z86.73 Personal history of transient ischemic attack (TIA), and cerebral infarction without residual deficits; Z79.2 Long term (current) use of antibiotics; Z79.82 Long term (current) use of aspirin; Z79.899 Other long term (current) drug therapy; Z88.2 Allergy status to sulfonamides; Z88.8 Allergy status to other drugs, medicaments and biological substances
CPT/HCPCS: 51798

== ENCOUNTER → 2025-10-07 | Outpatient (CLI) | payer MEDICARE ==
[~2025-10-07] MED LIST changes: +ACET500 PO; +ATOR10 PO; +CALCIUM 500 MG1 EAC9 PO; +DOCU100 PO; +GENTEAL TEARS S10 GM BOTHEYES; +IBUP200 PO; +LOSA25 PO; +MIRT15ST PO; +NYAMYC1513 TOP; +OMEP20ER PO; +[UNRECOGNIZED DRUG - CODE] PO
== END ==
LOC: LAB SHORT 11:50 → LAB 11:50
DX: N39.0 Urinary tract infection, site not specified (principal); R31.9 Hematuria, unspecified
CPT/HCPCS: 87077; 87086; 87186